=== PATIENT | female | born 1960 | race Caucasian/White ===

== ENCOUNTER 2016-10-13 15:53 | Emergency (ER) | payer BC ==
[~2016-10-13] VITALS: Ht 157.5 cm; Wt 72.6 kg
[~2016-10-13 15:53] MED LIST: OMEP1CAP19 PO; SIMV40TA3 PO
--- NOTE | 2016-10-13 16:17 | RAD ---
Indication: Anterior chest wall pain, fell off of a ladder today. Time of exam 1609 hours. Comparison is made with prior chest from 12/02/2006. The heart size is normal. There are surgical clips in the left axilla. The lungs are clear. No parenchymal contusion is seen. No effusion or pneumothorax is identified. The visualized bony structures appear intact. Impression: No acute abnormality is detected.
[2016-10-13 16:22] LABS: BASO # 0.1 x10^3/uL (0.0-0.2); BASO % 1 % (0-3); EOS % 1 % (0-3); HEMOGLOBIN 14.4 g/dL (12.0-15.5); LYMPH # 1.9 x10^3/uL (1.0-4.8); LYMPH % 34 % (24-48); MEAN CORPUSCULAR HEMOGLOBIN 32 pg (25-35); MEAN CORPUSCULAR HGB CONC 34 g/dL (31-37); MEAN CORPUSCULAR VOLUME 93 fL (79-100); MONO % 5 % (0-9); NEUT % 59 % (31-73); PLATELET COUNT 145 x10^3/uL (140-400); RED CELL DISTRIBUTION WIDTH 13.5 % (11.5-14.5); WHITE BLOOD COUNT 5.5 x10^3/uL (4.0-11.0)
[2016-10-13 16:32] LABS: PROTHROMBIN TIME PATIENT 12.4 SEC (11.7-14.0)
[2016-10-13 16:39] LABS: CALCIUM 9.5 mg/dL (8.5-10.1); GFR 57.1; POTASSIUM 3.8 mmol/L (3.5-5.1)
[2016-10-13 16:51] LABS: ALBUMIN/GLOBULIN RATIO 1.3 (1.0-1.7); TOTAL BILIRUBIN 0.6 mg/dL (0.2-1.0)
--- NOTE | 2016-10-13 16:57 | RAD ---
Clinical indications: Fell 20 feet from a ladder onto face. Head injury and neck pain. NONCONTRAST HEAD CT Technique: Noncontrast axial cross sectional scanning of the head was performed. PQRS Compliance Statement: One or more of the following individualized dose reduction techniques were utilized for this examination: 1. Automated exposure control 2. Adjustment of the mA and/or kV according to patient size 3. Use of iterative reconstruction technique Comparison: None available. Findings: No acute intracranial hemorrhage or midline shift or mass-effect or hydrocephalus or extra-axial fluid collection is seen. No focal hypodense area or sulci effacement is seen to indicate an acute infarct or edema radiographically. No skull fracture or pneumocephalus is seen. No opacification of the mastoid sinuses or the paranasal sinuses is seen. Impression: No acute intracranial abnormality is seen. Nasal septal deviation. NONCONTRAST CERVICAL SPINE CT Technique: Noncontrast helical CT scanning of the cervical spine was performed. Multiplanar 2-D reconstructions were generated. PQRS Compliance Statement: One or more of the following individualized dose reduction techniques were utilized for this examination: 1. Automated exposure control 2. Adjustment of the mA and/or kV according to patient size 3. Use of iterative reconstruction technique Findings: No acute fracture or discitis or osteolytic process or anterolisthesis is seen. There is moderate degenerative endplate spurring and disc space narrowing at C5-6 and C6-7. IMPRESSION: No acute fracture.
[2016-10-13] MEDS ORDERED: LIDOCAINE/EPI/TETRACAINE TOPICAL GEL 3 ML. TP ONE (17:45)
[2016-10-13] MEDS ORDERED: IOHEXOL 300 MG/ML 75 ML VIAL IV ONE (18:00)
[2016-10-13] MEDS ORDERED: CONTRAST GIVEN MC PRN (18:00)
[2016-10-13 18:10] LABS: BILIRUBIN,URINE NEGATIVE (NEG); GLUCOSE,URINE NEGATIVE (NEG); NITRITE,URINE NEGATIVE (NEG); PH,URINE 5.5; PROTEIN,URINE NEGATIVE (NEG-TRACE); UROBILINOGEN,URINE 0.2 mg/dL (0.2 mg/dL)
[2016-10-13 18:16] LABS: BACTERIA,URINE FEW /HPF (0-FEW); RBC,URINE 0 /HPF (0-2); SQUAMOUS EPITHELIAL CELL,UR FEW /LPF
[2016-10-13 18:20] LABS: BARBITURATES NEG (NEG); BENZODIAZEPINES NEG (NEG); CANNABINOIDS NEG (NEG); COCAINE NEG (NEG); METHADONE NEG (NEG); OPIATES NEG (NEG); PHENCYCLIDINE NEG (NEG)
--- NOTE | 2016-10-13 18:33 | PHYS DOC ---
Past Medical History Past Medical History: GERD Past Surgical History: Cholecystectomy, Hysterectomy, Tonsillectomy, Other Additional Past Surgical Histo: LUMPECTOMY L, Alcohol Use: None Drug Use: None Adult General Chief Complaint Chief Complaint: TRAUMA ACTIVATION HPI HPI Patient is a 56 year old female who was on a ladder 20 feet tall painting her house when the feet of the ladder slid away from the house and the patient fell down as the ladder went down, falling onto her face and abdomen on top of the ladder on a concrete surface. She denies loss of consciousness. At this time she complains of pain to her mouth and chin where she has lacerations. She denies head or neck pain. She complains of pain across the lower chest/upper abdomen, hurts to breathe, feels "tightness" in this area. She believes this area struck one of the rungs of the ladder. Also complains of pain in the left thumb/wrist area and the left elbow. Patient was ambulatory briefly after the fall. She was driven here by her . She does not take any blood thinners. Review of Systems Review of Systems Constitutional: Denies fever or chills [] Eyes: Denies change in visual acuity, redness, or eye pain [] HENT: Denies nasal congestion or sore throat [] Respiratory: Denies cough or shortness of breath [] Cardiovascular: Denies specific chest pain, see history of present illness GI: See history of present illness : Denies dysuria or hematuria [] Musculoskeletal: As in history of present illness Integument: Lacerations to face as in history of present illness Neurologic: Denies headache, focal weakness or sensory changes [] Current Medications Current Medications Current Medications Medications (Trade) Dose Ordered Sig/Viola Start Time Stop Time Status Last Admin Dose Admin Info (Do NOT chart on this entry -- for MONITORING) 1 each PRN DAILY PRN 10/13/16 18:00 10/13/16 20:58 DC Iohexol (Omnipaque 300 Mg/ml) 60 ml 1X ONCE 10/13/16 18:00 10/13/16 18:01 DC 10/13/16 18:13 60 ML Lidocaine/ Epinephrine (Let Topical) 6 ml 1X ONCE 10/13/16 17:45 10/13/16 17:46 DC 10/13/16 17:52 6 ML Lidocaine/ Epinephrine (Xylocaine 1%-Epi 1:100,000) 20 ml 1X ONCE 10/13/16 18:45 10/13/16 18:46 DC 10/13/16 18:35 20 ML Neomycin/ Polymyxin/ Bacitracin (Triple Antibiotic Ointment) 1 pkt 1X ONCE 10/13/16 19:45 10/13/16 19:52 DC 10/13/16 20:30 1 PKT Sodium Chloride 1,000 ml @ 1,000 mls/hr 1X ONCE 10/13/16 19:15 10/13/16 20:14 DC 10/13/16 19:12 1,000 MLS/HR Allergies Allergies Allergies Coded Allergies Type Severity Reaction Last Updated Verified No Known Drug Allergies 01/16/14 No Physical Exam Physical Exam Constitutional: Well developed, well nourished, no acute distress, non-toxic appearance. Alert, mentating normally. HENT: Normocephalic, no trauma to the forehead or scalp, nose normal, lacerations to the external lower lip and chin, fractures of lower central incisors right and left, no injury to the gums associated with these teeth, laceration in the vestibule between the lip and the gums, a piece of tooth is visible in this laceration. Eyes: PERRLA, EOMI, conjunctiva normal, no discharge. [] Neck: C-collar initially left in place Cardiovascular:Heart rate regular rhythm, no murmur [] Lungs & Thorax: Bilateral breath sounds clear to auscultation [] Abdomen: Bowel sounds normal, soft, nondistended, no masses, no pulsatile masses. Mildly tender to palpation across the upper abdomen, mostly over the lower ribs, no crepitance, no deformity. Skin: Warm, dry, no erythema, no rash. [] Back: No tenderness, no CVA tenderness. [] Extremities: Left upper extremity: Hand nontender without deformity. Wrist positive tenderness to snuffbox area. No deformity. Forearm unremarkable. Elbow has full range of motion with some discomfort with range of motion, no deformity. Humerus, shoulder unremarkable. Neurologic: Alert and oriented X 3, normal motor function, normal sensory function, no focal deficits noted. [] Current Patient Data Vital Signs Vital Signs Date Time Temp Pulse Resp B/P (MAP) Pulse Ox O2 Delivery O2 Flow Rate FiO2 10/13/16 20:15 71 17 123/63 (83) 98 Room Air 10/13/16 16:00 98.1 98.1 Lab Values Laboratory Tests Test 10/13/16 16:00 10/13/16 18:00 White Blood Count 5.5 x10^3/uL (4.0-11.0) Red Blood Count 4.50 x10^6/uL (3.50-5.40) Hemoglobin 14.4 g/dL (12.0-15.5) Hematocrit 42.0 % (36.0-47.0) Mean Corpuscular Volume 93 fL (79-100) Mean Corpuscular Hemoglobin 32 pg (25-35) Mean Corpuscular Hemoglobin Concent 34 g/dL (31-37) Red Cell Distribution Width 13.5 % (11.5-14.5) Platelet Count 145 x10^3/uL (140-400) Neutrophils (%) (Auto) 59 % (31-73) Lymphocytes (%) (Auto) 34 % (24-48) Monocytes (%) (Auto) 5 % (0-9) Eosinophils (%) (Auto) 1 % (0-3) Basophils (%) (Auto) 1 % (0-3) Neutrophils # (Auto) 3.3 x10^3uL (1.8-7.7) Lymphocytes # (Auto) 1.9 x10^3/uL (1.0-4.8) Monocytes # (Auto) 0.3 x10^3/uL (0.0-1.1) Eosinophils # (Auto) 0.0 x10^3/uL (0.0-0.7) Basophils # (Auto) 0.1 x10^3/uL (0.0-0.2) Prothrombin Time 12.4 SEC (11.7-14.0) Prothrombin Time INR 1.0 (0.8-1.1) PTT 22 SEC (24-38) L Sodium Level 142 mmol/L (136-145) Potassium Level 3.8 mmol/L (3.5-5.1) Chloride Level 106 mmol/L (98-107) Carbon Dioxide Level 27 mmol/L (21-32) Anion Gap 9 (6-14) Blood Urea Nitrogen 17 mg/dL (7-20) Creatinine 1.0 mg/dL (0.6-1.0) Estimated GFR (Cockcroft-Gault) 57.1 BUN/Creatinine Ratio 17 (6-20) Glucose Level 123 mg/dL (70-99) H Calcium Level 9.5 mg/dL (8.5-10.1) Total Bilirubin 0.6 mg/dL (0.2-1.0) Aspartate Amino Transferase (AST) 39 U/L (15-37) H Alanine Aminotransferase (ALT) 50 U/L (14-59) Alkaline Phosphatase 123 U/L (46-116) H Total Protein 7.0 g/dL (6.4-8.2) Albumin 4.0 g/dL (3.4-5.0) Albumin/Globulin Ratio 1.3 (1.0-1.7) Ethyl Alcohol Level < 10 mg/dL (0-10) Urine Collection Type Unknown Urine Color Yellow Urine Clarity Cloudy Urine pH 5.5 Urine Specific [place] 1.020 Urine Protein Negative mg/dL (NEG-TRACE) Urine Glucose (UA) Negative mg/dL (NEG) Urine Ketones (Stick) Trace mg/dL (NEG) Urine Blood Negative (NEG) Urine Nitrite Negative (NEG) Urine Bilirubin Negative (NEG) Urine Urobilinogen Dipstick 0.2 mg/dL (0.2 mg/dL) Urine Leukocyte Esterase Small (NEG) Urine RBC 0 /HPF (0-2) Urine WBC 5-10 /HPF (0-4) Urine Squamous Epithelial Cells Few /LPF Urine Bacteria Few /HPF (0-FEW) Urine Mucus Mod /LPF Urine Opiates Screen Neg (NEG) Urine Methadone Screen Neg (NEG) Urine Barbiturates Neg (NEG) Urine Phencyclidine Screen Neg (NEG) Urine Amphetamine/Methamphetamine Neg (NEG) Urine Benzodiazepines Screen Neg (NEG) Urine Cocaine Screen Neg (NEG) Urine Cannabinoids Screen Neg (NEG) Urine Ethyl Alcohol Neg (NEG) Laboratory Tests 10/13/16 16:00 Laboratory Tests 10/13/16 16:00 EKG EKG [] Radiology/Procedures Radiology/Procedures CT scan of the head and cervical spine read by the radiologist. No acute findings. Three-view x-ray of the left wrist read by me. On one view, possible scaphoid fracture noted. No other findings. Three-view x-ray of the left elbow read by me. Joint effusion present with larger anterior fat pad been normal. No definite fracture seen, possible radial head fracture. No posterior fat pad. CT scan of the abdomen and pelvis read by the radiologist. No acute findings. Procedure: Repair of facial lacerations by me LET was placed in the facial lacerations by nursing staff before the patient went to CT. After CT, they were partially anesthetized and procedure was done. The lacerations were cleaned with Betadine. Anesthetized with 1% lidocaine with epi. Irrigated with normal saline using a splash shield. Lacerations were explored. Small tooth fragments were removed. 3 cm laceration on the chin was repaired with 7 simple interrupted sutures of 6-0 Prolene. Left sided lower lip laceration measuring 1.5 cm was repaired with 5 simple interrupted sutures of 6- 0 Prolene. 0.5 cm laceration on the right side of the lower lip repaired with 1 simple interrupted suture of 6-0 Prolene. Good result on all lacerations. They were covered with triple antibiotic ointment. [] Course & Med Decision Making Course & Med Decision Making Pertinent Labs and Imaging studies reviewed. (See chart for details) This patient was a trauma team activation for fall over 20 feet. Initial evaluation: Cervical collar was left in place. Vital signs are stable. Tetanus is up-to-date. 1 view portable chest x-ray read by me. Heart size normal , lung ferreira are clear, no pneumothorax or pleural effusion. Dr. Lee, general surgery, called to check on the patient, was made aware of status. Patient was sent for head and C-spine CT which were cleared. Reevaluation after CT, vital signs remained stable. Left upper extremity x-rays were read by me. Discussed findings with the patient. Topical anesthetic was placed on the face lacerations, patient was sent for CT scan of the abdomen and pelvis due to continued pain and tenderness across the upper abdomen. I discussed the case with Dr. Steele, oral surgery. He stated that frequently, lacerations of the oral vestibule are not something that can be sutured, he stated frequently they leave it alone, the tissue is very thin and it ends up tearing when attempting to suture. He will follow the patient up in his office. Lacerations were repaired. Patient had a little vagal episode and was given a liter of IV fluids during the procedure. She felt a lot better after that. After lacerations were repaired, thumb spica splint and sling was placed on the left wrist/arm. Splint was checked by me and is well placed with distal neurovascular intact. Patient was ambulatory to the restroom assisted by nursing staff and felt well. She is going home with family members. 56-year-old female "rode a ladder" down from a height of over 20 feet to onto a concrete driveway surface. She landed more or less on her face and anterior chest and abdomen. Head, cervical spine no acute findings. Lacerations on the face repaired. Dental injury noted, she will need to follow-up. Intraoral laceration will be followed up by Dr. Steele, oral surgery. Referral to orthopedics. Left wrist was splinted for possible scaphoid fracture, left elbow was put in a sling for possible radial head fracture. See instructions for plan. [] Dragon Disclaimer Dragon Disclaimer This electronic medical record was generated, in whole or in part, using a voice recognition dictation system. Departure Departure Impression: Primary Impression: Laceration of face Additional Impressions: Fracture of incisor teeth Fracture of scaphoid of left wrist Left radial head fracture Chest wall trauma Disposition: 01 HOME, SELF-CARE Condition: STABLE Referrals: MAU CONRAD MD (PCP) PABLO WATSON MD, HAROLD D Jr DDS Patient Instructions: Facial Laceration, [id number], Head Injury, Adult, Easy -to-Read, Mouth Injury, Generic, [id number], Radial Head Fracture, Easy-to- Read, Scaphoid Fracture, Wrist, Tooth Fracture Additional Instructions: Call tomorrow to see Dr. Steele, oral surgery, on Tuesday. He will take another look at the laceration in your mouth. Also, in 5-6 days, he will remove the stitches in your face. Clean the sutured facial lacerations 2-3 times a day using half-strength peroxide and a Q-tip. Are air dry well and apply [id number] antibiotic ointment to keep them covered and moist. For the laceration in your mouth, very gently swish with Peridex after each time you eat, and at bedtime. You will need to have liquids only for a few days. For the tooth fractures, see your dentist. You need to see orthopedics, Dr. Watson, I gave you her phone number, for follow-up of the left wrist and elbow fractures. Leave the splint on and keep it dry. Ice and elevate the elbow and wrist for swelling. Wear the sling for the elbow when you are up and around, you may wear the sling at bedtime if more comfortable or you may leave it off. Ibuprofen 800 mg every 6-8 hours for pain. If needed, for more severe pain, also take [place] as directed. This is an opiate, do not take while driving, will cause sedation and constipation. It is safe to combine ibuprofen and hydrocodone /[place]. Scripts Chlorhexidine Gluconate (PERIDEX) 15 Ml Mouthwash 15 ML PO QID for mouth injuries, #946 ML Prov: PUSHPA DORAN MD 10/13/16 Hydrocodone/Apap 5-325 (NORCO 5-325 TABLET) 1 Each Tablet 1-2 TAB PO Q4-6HRS for wrist, elbow fracture, #20 TAB Prov: PUSHPA DORAN MD 10/13/16 Problem Qualifiers PUSHPA DORAN MD Oct 13, 2016 18:32
[2016-10-13] MEDS ORDERED: LIDOCAINE 1%/EPI 1:100,000 20 ML VIAL. INJ ONE (18:45)
[2016-10-13] MEDS ORDERED: IV NORMAL SALINE 1000ML BAG 1,000 ML IV ONE (19:15)
[2016-10-13] MEDS ORDERED: NEOMY/BACITR/POLYMYXIN OINT PACKET. TP ONE (19:45)
[2016-10-13] MEDS ORDERED: HYDR-971 PO (20:09)
[2016-10-13 20:15] VITALS: BP 123/63
[2016-10-13] MEDS ORDERED: CHLO15MO2 PO (20:22)
--- NOTE | 2016-10-13 21:59 | RAD ---
3 view left hand study History: Fell off of a ladder. Left hand pain. Findings: No acute fracture or dislocation or osteolytic process is seen. IMPRESSION: No acute fracture.
--- NOTE | 2016-10-13 21:59 | RAD ---
3 view left elbow study History: Fell from ladder 20 feet. Left elbow pain. Findings: A left elbow joint effusion is seen. This is consistent with an occult radial head fracture. Actual fracture line is not identified in this study. Left elbow joint is normally aligned otherwise. IMPRESSION: Occult left radial head fracture.
--- NOTE | 2016-10-14 09:11 | RAD ---
Indication: Fall from ladder and abdominal pain. Axial imaging through the abdomen and pelvis was performed after the administration of intravenous contrast. The lung bases are clear. No focal liver or splenic laceration is identified. The gallbladder is surgically absent. The pancreas is unremarkable. The adrenal glands are unremarkable. The kidneys are unremarkable. Aorta is nonaneurysmal. No free fluid in the abdomen or pelvis is identified. The small and large bowel loops are normal caliber. The bladder is unremarkable. The bony structures appear nonacute. Impression: No evidence of abdominal or pelvic visceral injury.
== END 2016-10-13 20:40 | disposition home or self-care (01) ==
LOC: ER 15:53
DX: S62.002A Unspecified fracture of navicular [scaphoid] bone of left wrist, initial encounter for closed fracture (principal); S52.122A Displaced fracture of head of left radius, initial encounter for closed fracture; S01.511A Laceration without foreign body of lip, initial encounter; S01.81XA Laceration without foreign body of other part of head, initial encounter; S01.512A Laceration without foreign body of oral cavity, initial encounter; R10.30 Lower abdominal pain, unspecified; R07.9 Chest pain, unspecified; K21.9 Gastro-esophageal reflux disease without esophagitis; Z90.49 Acquired absence of other specified parts of digestive tract; Z90.710 Acquired absence of both cervix and uterus; W11.XXXA Fall on and from ladder, initial encounter; Y93.E9 Activity, other interior property and clothing maintenance; Y92.098 Other place in other non-institutional residence as the place of occurrence of the external cause; Y99.8 Other external cause status
CPT/HCPCS: 12052; 29125; 36415; 70450; 71010; 72125; 73080; 73130; 74177; 80053; 80305; 80320; 81001; 85027; 85610; 85730; 86850; 86900; 86901; 96360; 99285; J3490; J7030; Q9967; 12013; G0480; G0481

== ENCOUNTER 2018-12-01 20:58 | Inpatient (IN) | payer BC ==
[~2018-12-01] VITALS: Ht 157.5 cm; Wt 69.6 kg
[~2018-12-01 20:58] MED LIST changes: +CHLO15MO2 PO; +HYDR-3164 PO; +LEVE500T56 PO; +LORA2ORA7 SL
[2018-12-01] MEDS ORDERED: MORPHINE SULFATE 4 MG/ML VIAL. IV/SQ PRN (21:15)
[2018-12-01] MEDS ORDERED: NITROGLYCERIN SUBLINGUAL 0.4 MG BOTTLE OF 25. SL PRN (21:15)
[2018-12-01 21:22] LABS: BASO % 0 % (0-3); EOS % 0 % (0-3); LYMPH # 0.8 x10^3/uL (1.0-4.8); LYMPH % 14 % (24-48); MEAN CORPUSCULAR HEMOGLOBIN 33 pg (25-35); MEAN CORPUSCULAR HGB CONC 36 g/dL (31-37); MEAN CORPUSCULAR VOLUME 92 fL (79-100); MONO # 0.3 x10^3/uL (0.0-1.1); MONO % 5 % (0-9); NEUT # 4.2 x10^3/uL (1.8-7.7); NEUT % 80 % (31-73); PLATELET COUNT 71 x10^3/uL (140-400); RED BLOOD COUNT 2.41 x10^6/uL (3.50-5.40); RED CELL DISTRIBUTION WIDTH 19.2 % (11.5-14.5); WHITE BLOOD COUNT 5.3 x10^3/uL (4.0-11.0)
[2018-12-01] MEDS ORDERED: ONDANSETRON PF 4 MG/2 ML VIAL. IV ONE (21:30)
[2018-12-01] MEDS ORDERED: FAMOTIDINE 20 MG/2 ML VIAL IVP ONE (21:30)
[2018-12-01 21:35] LABS: CALCIUM 8.2 mg/dL (8.5-10.1); CREATININE 0.5 mg/dL (0.6-1.0); GFR 126.3; POTASSIUM 4.1 mmol/L (3.5-5.1)
--- NOTE | 2018-12-01 21:36 | PHYS DOC ---
Past Medical History Past Medical History: Cancer, GERD, Other Additional Past Medical Histor: brain cancer that metastisized to bones. (ELIEL CONTE APRN) Past Surgical History: Cholecystectomy, Hysterectomy, Tonsillectomy, Other Additional Past Surgical Histo: LUMPECTOMY L, (ELIEL CONTE APRN) Alcohol Use: None Drug Use: None (ELIEL CONTE APRN) Adult General Chief Complaint Chief Complaint: CHEST PAIN HPI HPI Patient is a 58 year old female with a history of left breast cancer diagnosed in 2014, who recently was diagnosed with metastatic disease to the brain and started on oral dexamethasone and radiation who presents to the ED today complaining of 8 out of 10 substernal and epigastric chest pain that began this evening. Patient describes the pain as pressure to her chest. Denies anything specifically exacerbating or relieving her symptoms. She is also complaining of shortness of breath. Denies any fever coughing or congestion. She gets her treatment at [facility]. (ELIEL CONTE APRN) Review of Systems Review of Systems Constitutional: Denies fever or chills [] Eyes: Denies change in visual acuity, redness, or eye pain [] HENT: Denies nasal congestion or sore throat [] Respiratory: Reports shortness of breath. Denies cough Cardiovascular: Reports Chest pain. GI: Denies abdominal pain, nausea, vomiting, bloody stools or diarrhea [] : Denies dysuria or hematuria [] Musculoskeletal: Denies back pain or joint pain [] Integument: Denies rash or skin lesions [] Neurologic: Denies headache, focal weakness or sensory changes [] All other systems were reviewed and found to be within normal limits, except as documented in this note. (ELIEL CONTE APRN) Current Medications Current Medications Current Medications Medications (Trade) Dose Ordered Sig/Viola Start Time Stop Time Status Last Admin Dose Admin Ceftriaxone Sodium (Rocephin) 1 gm 1X ONCE 12/02/18 01:00 12/02/18 01:01 UNV Famotidine (Pepcid Vial) 20 mg 1X ONCE 12/01/18 21:30 12/01/18 21:31 DC 12/01/18 21:25 20 MG Info (CONTRAST GIVEN -- Rx MONITORING) 1 each PRN DAILY PRN 12/01/18 22:45 12/03/18 22:44 Iohexol (Omnipaque 350 Mg/ml) 90 ml 1X ONCE 12/01/18 23:00 12/01/18 23:01 DC 12/01/18 23:08 90 ML Morphine Sulfate (Morphine Sulfate) 2 mg PRN Q2HR PRN 12/02/18 01:00 12/03/18 00:59 Nitroglycerin (Nitrostat) 0.4 mg PRN Q5MIN PRN 12/01/18 21:15 12/02/18 21:14 12/01/18 21:24 0.4 MG Ondansetron HCl (Zofran) 4 mg PRN Q8HRS PRN 12/02/18 01:00 12/03/18 00:59 Sodium Chloride 1,000 ml @ 1,000 mls/hr 1X ONCE 12/01/18 21:45 12/01/18 22:44 DC 12/01/18 21:38 1,000 MLS/HR (UYEN MUSTAFA DO) Allergies Allergies Allergies Coded Allergies Type Severity Reaction Last Updated Verified No Known Drug Allergies 01/16/14 No (UYEN MUSTAFA DO) Physical Exam Physical Exam Constitutional: Well developed, well nourished, no acute distress, non-toxic appearance. [] HENT: Normocephalic, atraumatic, bilateral external ears normal, oropharynx moist, no oral exudates, nose normal. [] Eyes: PERRLA, EOMI, conjunctiva normal, no discharge. [] Neck: Normal range of motion, no tenderness, supple, no stridor. [] Cardiovascular:Heart rate regular rhythm, no murmur [] Lungs & Thorax: Diminished breath sounds to posterior lung bases Abdomen: Bowel sounds normal, soft, no tenderness, no masses, no pulsatile masses. [] Skin: Warm, dry, no erythema, no rash. [] Back: No tenderness, no CVA tenderness. [] Extremities: No tenderness, no cyanosis, no clubbing, ROM intact, no edema. [] Neurologic: Alert and oriented X 3, normal motor function, normal sensory function, no focal deficits noted. [] Psychologic: Affect normal, judgement normal, mood normal. [] (ELIEL CONTE APRN) Current Patient Data Vital Signs Vital Signs Date Time Temp Pulse Resp B/P (MAP) Pulse Ox O2 Delivery O2 Flow Rate FiO2 12/01/18 23:52 89 16 108/70 (83) 99 Room Air 12/01/18 21:00 97.7 97.7 (UYEN MUSTAFA DO) Lab Values Laboratory Tests Test 12/01/18 21:13 White Blood Count 5.3 x10^3/uL (4.0-11.0) Red Blood Count 2.41 x10^6/uL (3.50-5.40) L Hemoglobin 8.0 g/dL (12.0-15.5) L Hematocrit 22.0 % (36.0-47.0) L Mean Corpuscular Volume 92 fL (79-100) Mean Corpuscular Hemoglobin 33 pg (25-35) Mean Corpuscular Hemoglobin Concent 36 g/dL (31-37) Red Cell Distribution Width 19.2 % (11.5-14.5) H Platelet Count 71 x10^3/uL (140-400) L Neutrophils (%) (Auto) 80 % (31-73) H Lymphocytes (%) (Auto) 14 % (24-48) L Monocytes (%) (Auto) 5 % (0-9) Eosinophils (%) (Auto) 0 % (0-3) Basophils (%) (Auto) 0 % (0-3) Neutrophils # (Auto) 4.2 x10^3/uL (1.8-7.7) Lymphocytes # (Auto) 0.8 x10^3/uL (1.0-4.8) L Monocytes # (Auto) 0.3 x10^3/uL (0.0-1.1) Eosinophils # (Auto) 0.0 x10^3/uL (0.0-0.7) Basophils # (Auto) 0.0 x10^3/uL (0.0-0.2) Segmented Neutrophils % 71 % (35-66) H Band Neutrophils % 10 % (0-9) H Lymphocytes % 13 % (24-48) L Atypical Lymphocytes % (Manual) 1 % (0-0) H Monocytes % 3 % (0-10) Metamyelocytes % 1 % (0-0) H Myelocytes % 1 % (0-0) H Platelet Estimate Decreased (ADEQUATE) Giant Platelets Occ Polychromasia Slight Anisocytosis Slight Tear Drop Cells Occ D-Dimer (Coty) 7.27 ug/mlFEU (0.00-0.50) H Sodium Level 137 mmol/L (136-145) Potassium Level 4.1 mmol/L (3.5-5.1) Chloride Level 101 mmol/L (98-107) Carbon Dioxide Level 30 mmol/L (21-32) Anion Gap 6 (6-14) Blood Urea Nitrogen 19 mg/dL (7-20) Creatinine 0.5 mg/dL (0.6-1.0) L Estimated GFR (Cockcroft-Gault) 126.3 BUN/Creatinine Ratio 38 (6-20) H Glucose Level 152 mg/dL (70-99) H Calcium Level 8.2 mg/dL (8.5-10.1) L Magnesium Level 2.1 mg/dL (1.8-2.4) Total Bilirubin 1.2 mg/dL (0.2-1.0) H Aspartate Amino Transferase (AST) 64 U/L (15-37) H Alanine Aminotransferase (ALT) 122 U/L (14-59) H Alkaline Phosphatase 247 U/L (46-116) H Creatine Kinase 67 U/L (26-192) Creatine Kinase MB (Mass) 1.4 ng/mL (0.0-3.6) Creatine Kinase MB Relative Index % (0-4) Troponin I Quantitative < 0.017 ng/mL (0.000-0.055) VA-Prb-Y-Type Natriuretic Peptide 83 pg/mL (0-124) Total Protein 5.7 g/dL (6.4-8.2) L Albumin 2.8 g/dL (3.4-5.0) L Albumin/Globulin Ratio 1.0 (1.0-1.7) Lipase 229 U/L (73-393) Thyroid Stimulating Hormone (TSH) 0.558 uIU/mL (0.358-3.74) Laboratory Tests 12/01/18 21:13 Laboratory Tests 12/01/18 21:13 (UYEN MUSTAFA DO) EKG EKG [address] Mustafa sinus rhythm HR 98 no STEMI[] (ELIEL CONTE APRN) Radiology/Procedures Radiology/Procedures []PROCEDURE: CT ANGIOGRAPHY CHEST Exam: CTA chest INDICATION: Chest pain TECHNIQUE: Sequential axial images through the chest obtained following the administration of 90 mL of Omnipaque 350 IV contrast. Sagittal and coronal reformatted images were reconstructed from the axial data and reviewed. 3-D reformatted images were reconstructed from the axial data and reviewed. Comparisons: None FINDINGS: Visualized portions of the thyroid are unremarkable. No enlarged mediastinal lymph nodes. Heart size is normal. No pericardial effusion. Thoracic aorta has a normal course and caliber. Pulmonary artery is not enlarged. Evaluation for pulmonary embolus is mildly limited secondary to contrast bolus timing. No pulmonary embolus identified within the main, lobar or proximal segmental pulmonary arteries. Airways are patent. No consolidation or pneumothorax. Mosaic attenuation of the lung parenchyma bilaterally, likely related to air trapping. Peripheral linear bandlike opacities likely representing atelectasis. Patchy areas of opacity noted in the right upper lobe. No pleural effusion or thickening. Cirrhotic morphology of the liver with moderate amount of ascites in the visualized upper abdomen. There is a moderate-sized hiatal hernia. Sclerotic heterogenous appearance of the osseous structures diffusely. No acute fractures. IMPRESSION: 1. No pulmonary embolism identified within the main, lobar or proximal segmental pulmonary arteries. Evaluation distally is limited by contrast bolus timing. 2. Patchy areas of opacity in the right upper lobe favored to be infectious in etiology. 3. Cirrhotic morphology of the liver with moderate amount of ascites in the visualized upper abdomen. 4. Heterogenous sclerotic appearance of the osseous structures. Correlate for history of metastatic disease. Exposure: One or more of the following in the visualized dose reduction techniques were utilized for this examination: 1. Automated exposure control 2. Adjustment of the MA and/or KV according to patient size 3. Use of iterative of reconstructive technique Electronically signed by: Noelle Wolfe MD (12/01/2018 11:39 PM) [facility] DICTATED and SIGNED BY: NOELLE WOLFE MD DATE: 12/01/18 2339 (ELIEL CONTE APRN) Course & Med Decision Making Course & Med Decision Making Pertinent Labs and Imaging studies reviewed. (See chart for details) This is a 58-year-old female patient with history of breast cancer with metastasis to brain who presents to the ED today complaining of chest pressure/pain with shortness of breath that began a couple minutes prior to coming to the ED. EKG is negative, chest x-ray is negative, CBC within normal WBC, hemoglobin appears slightly low at 8.1 and hematocrit of 22.0, patient denies any rectal bleed. AST 64, ALT 122, ALT 247. Heart score on the template D-dimer was 7.27 CTA chest negative for PE , Patchy areas of opacity in the right upper lobe favored to be infectious in etiology. Cirrhotic morphology of the liver with moderate amount of ascites in the visualized upper abdomen. Heterogenous sclerotic appearance of the osseous structures. Correlate for history of metastatic disease. Patient was admitted under Dr.Termulo Dr. Mustafa to give report in AM. (ELIEL CONTE APRN) Dragon Disclaimer Dragon Disclaimer This electronic medical record was generated, in whole or in part, using a voice recognition dictation system. (ELIEL CONTE APRN) The HEART Score for CP Pts HEART Score for Chest Pain: HEART Score for Chest Pain Response (Comments) Value History Slighlty/Non-Suspicious 0 ECG Normal 0 Age >45 - < 65 1 Risk Factors 1 or 2 Risk Factors 1 Troponin < Normal Limit 0 Total 2 Risk Factors: Risk Factors: DM, Current or recent (<one month) smoker, HTN, HLP, family history of CAD, obesity. Risk Scores: Score 0 - 3: 2.5% MACE over next 6 weeks - Discharge Home Score 4 - 6: 20.3% MACE over next 6 weeks - Admit for Clinical Observation Score 7 - 10: 72.7% MACE over next 6 weeks - Early Invasive Strategies (ELIEL CONTE APRN) Departure Departure Impression: Primary Impression: Right upper lobe pneumonia Additional Impression: Chest pain Disposition: ADMITTED INPATIENT Condition: STABLE Referrals: MAU CONRAD MD (PCP) Attending Signature Attending Signature I have reviewed the [employer]'s note and plan of care. I was available for consultation as needed during the patient's visit in the emergency department. I agree with the clinical impression, plan, and disposition. (UYEN MUSTAFA DO) Problem Qualifiers Primary Impression: Right upper lobe pneumonia Pneumonia type: due to unspecified organism Qualified Codes: J18.1 - Lobar pneumonia, unspecified organism Additional Impression: Chest pain Chest pain type: unspecified Qualified Codes: R07.9 - Chest pain, unspecified ELIEL CONTE APRN Dec 01, 2018 21:36 UYEN MUSTAFA DO Dec 02, 2018 02:10
--- NOTE | 2018-12-01 21:38 | RAD ---
Exam: Chest one view INDICATION: Chest pain TECHNIQUE: Frontal view of the chest Comparisons: None FINDINGS: Right anterior chest wall port with catheter tip projecting over the right atrium. The cardiomediastinal silhouette and pulmonary vessels are within normal limits. The lung and pleural spaces are clear. IMPRESSION: No acute cardiopulmonary process. Port as described above. Electronically signed by: Noelle Knight MD (12/01/2018 9:35 PM) [facility]
[2018-12-01 21:41] LABS: ALBUMIN 2.8 g/dL (3.4-5.0); MAGNESIUM 2.1 mg/dL (1.8-2.4); TOTAL BILIRUBIN 1.2 mg/dL (0.2-1.0); TOTAL PROTEIN 5.7 g/dL (6.4-8.2)
[2018-12-01] MEDS ORDERED: IV NORMAL SALINE 1000ML BAG 1,000 ML IV ONE (21:45)
[2018-12-01 21:47] LABS: CREATINE KINASE 67 U/L (26-192)
[2018-12-01] MEDS ORDERED: CONTRAST GIVEN. MC PRN (22:45)
[2018-12-01] MEDS ORDERED: IOHEXOL 350 MG/ML 100 ML VIAL. IV ONE (23:00)
--- NOTE | 2018-12-01 23:42 | RAD ---
Exam: CTA chest INDICATION: Chest pain TECHNIQUE: Sequential axial images through the chest obtained following the administration of 90 mL of Omnipaque 350 IV contrast. Sagittal and coronal reformatted images were reconstructed from the axial data and reviewed. 3-D reformatted images were reconstructed from the axial data and reviewed. Comparisons: None FINDINGS: Visualized portions of the thyroid are unremarkable. No enlarged mediastinal lymph nodes. Heart size is normal. No pericardial effusion. Thoracic aorta has a normal course and caliber. Pulmonary artery is not enlarged. Evaluation for pulmonary embolus is mildly limited secondary to contrast bolus timing. No pulmonary embolus identified within the main, lobar or proximal segmental pulmonary arteries. Airways are patent. No consolidation or pneumothorax. Mosaic attenuation of the lung parenchyma bilaterally, likely related to air trapping. Peripheral linear bandlike opacities likely representing atelectasis. Patchy areas of opacity noted in the right upper lobe. No pleural effusion or thickening. Cirrhotic morphology of the liver with moderate amount of ascites in the visualized upper abdomen. There is a moderate-sized hiatal hernia. Sclerotic heterogenous appearance of the osseous structures diffusely. No acute fractures. IMPRESSION: 1. No pulmonary embolism identified within the main, lobar or proximal segmental pulmonary arteries. Evaluation distally is limited by contrast bolus timing. 2. Patchy areas of opacity in the right upper lobe favored to be infectious in etiology. 3. Cirrhotic morphology of the liver with moderate amount of ascites in the visualized upper abdomen. 4. Heterogenous sclerotic appearance of the osseous structures. Correlate for history of metastatic disease. Exposure: One or more of the following in the visualized dose reduction techniques were utilized for this examination: 1. Automated exposure control 2. Adjustment of the MA and/or KV according to patient size 3. Use of iterative of reconstructive technique Electronically signed by: Noelle Knight MD (12/01/2018 11:39 PM) [facility]
[2018-12-01 23:43] LABS: % ATYL 1 % (0-0); % BANDS 10 % (0-9); % LYMPHS 13 % (24-48); % METAS 1 % (0-0); % MONOS 3 % (0-10); % MYELOS 1 % (0-0); % SEGS 71 % (35-66); ANISOCYTOSIS SLIGHT; PLT ESTIMATE DECREASED (ADEQUATE); POLYCHROMASIA SLIGHT
[2018-12-01 23:44] LABS: TEAR DROP CELLS OCC
[2018-12-02] MEDS ORDERED: ONDANSETRON PF 4 MG/2 ML VIAL. IV PRN (01:00)
[2018-12-02] MEDS ORDERED: MORPHINE SULFATE 2 MG/ML VIAL. IV PRN (01:00)
[2018-12-02] MEDS ORDERED: cefTRIAXone IV Push 1 GM VIAL. IVP ONE ×2 (01:00→01:30)
[2018-12-02] MEDS ORDERED: IV NORMAL SALINE 1000ML BAG 1,000 ML IV ONE (01:30)
[2018-12-02 02:20] VITALS: BP 126/70
[2018-12-02] MEDS ORDERED: CAPE150T5 PO (03:21)
[2018-12-02] MEDS ORDERED: CAPE500T13 PO (03:21)
[2018-12-02] MEDS ORDERED: INSU100I13 SQ (03:21)
[2018-12-02] MEDS ORDERED: FURO20TA3 PO (03:21)
[2018-12-02] MEDS ORDERED: DEXA4TAB PO (03:21)
[2018-12-02] MEDS ORDERED: POTA20TA82 PO (03:21)
[2018-12-02] MEDS ORDERED: INSU100V SQ (03:21)
[2018-12-02] MEDS ORDERED: RANI300T PO (03:21)
[2018-12-02] MEDS ORDERED: ONDA4TAB12 PO (03:21)
[2018-12-02] MEDS ORDERED: LEVE500T6 PO (03:21)
[2018-12-02] MEDS ORDERED: LANS30CA PO (03:21)
[2018-12-02] MEDS ORDERED: ONDANSETRON ODT 4 MG TAB.RAPDIS. PO PRN (03:45)
[2018-12-02] MEDS ORDERED: IV DEXTROSE 5% 250 ML BAG. IV PRN ×2 (04:00→09:45)
[2018-12-02] MEDS ORDERED: DEXTROSE 50% 25 GM / 50ML DISP.SYRIN. IV PRN ×2 (04:00→09:45)
[2018-12-02 07:30] VITALS: BP 109/75
[2018-12-02] MEDS ORDERED: INSULIN LISPRO 300 UNITS/3 ML VIAL. SQ SCH (08:00)
--- NOTE | 2018-12-02 08:43 | PDOC2 ---
CONSULT Date of Consult Date of Consult DATE: 12/02/18 TIME: 08:39 Reason for Consult Reason for Consult: brain mets from breast cancer Identification/Chief Complaint Chief Complaint pain Source Source: Caregiver, Patient History of Present Illness Reason for Visit: 58 year old female with a history of HR(+) left breast cancer diagnosed in late 2013. She underwent neoadjuvant chemo, then XRT then surgery in early 2014. She was on Femara for 3+ yrs, when she was diagnosed with metastasis to bones and liver in February 2018. She then took Havalen and had a nice response until August 2018 when she was noticing "sinus headaches". It was then she was found to have recurrence in liver and brain then. She was started on decadron and Xeloda 1650mg PO BID for 14d of 21 day cycles. She finished whole brain radiation to the brain about a month ago - this was complicated by increased seizure activity, hyperglycemia, progressive weakness/deconditioning and sig wt gain. While she has been on steroids, she has had progressive edema in BLE and abdomen. Her primary oncologist Dr Amado prado left [facility] so she is starting afresh with Dr Ayers now. She is one week into her planned 2 weeks of Xeloda BID. I have asked her to hold the chemo until checking back in with Dr Ayers once out of the hospital. Last night, she just couldn't ever get comfortable with her breathing. Not really pain, just tightness in mid-chest and unable to feel like she had truly caught her breath. She has had shortness of breath, which is worse in the evening. It did get worse yesterday. She has had some chest tightness. She gets her care at [facility], but since she lives close to [facility] she was brought to Emergency Room by her . Continues to have some chest tightness, has been on diuretics for the past few weeks, which has actually helped the swelling some. She denies cough, runny nose, diarrhea. She has gastroesophageal reflux symptoms. She states she has had problems with low Hgb and plts while on this chemo. She uses a walker for balance and has home PT set up already. Next PET scan is scheduled for next week. She has no advanced directives, but wishes to be full code for now Past Medical History Cardiovascular: Hyperlipidemia Pulmonary: No pertinent hx CENTRAL NERVOUS SYSTEM: Other GI: GERD Heme/Onc: Cancer Hepatobiliary: No pertinent hx Psych: No pertinent hx Rheumatologic: No pertinent hx Infectious disease: No pertinent hx Renal/: No pertinent hx Endocrine: No pertinent hx Past Surgical History Past Surgical History: Breast Biopsy, Cholecystectomy, Tonsillectomy, Hysterectomy Family History Family History: Cancer Social History ALCOHOL: rare Drugs: None Current Problem List Problem List Problems Medical Problems: (1) Chest pain Status: Acute (2) Right upper lobe pneumonia Status: Acute Current Medications Current Medications Current Medications Nitroglycerin (Nitrostat) 0.4 mg PRN Q5MIN PRN SL CP RATING > 1/10 Last administered on 12/01/18at 21:24; Start 12/01/18 at 21:15; Stop 12/02/18 at 21:14 Morphine Sulfate (Morphine Sulfate) 4 mg PRN Q15MIN PRN IV/SQ PAIN GREATER THAN 3/10; Start 12/01/18 at 21:15; Stop 12/02/18 at 21:14 Ondansetron HCl (Zofran) 4 mg 1X ONCE IV Last administered on 12/01/18at 21:24; Start 12/01/18 at 21:30; Stop 12/01/18 at 21:31; Status DC Famotidine (Pepcid Vial) 20 mg 1X ONCE IVP Last administered on 12/01/18at 21:25; Start 12/01/18 at 21:30; Stop 12/01/18 at 21:31; Status DC Sodium Chloride 1,000 ml @ 1,000 mls/hr 1X ONCE IV Last administered on 12/01/18at 21:38; Start 12/01/18 at 21:45; Stop 12/01/18 at 22:44; Status DC Iohexol (Omnipaque 350 Mg/ml) 90 ml 1X ONCE IV Last administered on 12/01/18at 23:08; Start 12/01/18 at 23:00; Stop 12/01/18 at 23:01; Status DC Info (CONTRAST GIVEN -- Rx MONITORING) 1 each PRN DAILY PRN MC SEE COMMENTS; Start 12/01/18 at 22:45; Stop 12/03/18 at 22:44 Ceftriaxone Sodium (Rocephin) 1 gm 1X ONCE IVP ; Start 12/02/18 at 01:00; Stop 12/02/18 at 01:01; Status UNV Ondansetron HCl (Zofran) 4 mg PRN Q8HRS PRN IV NAUSEA/VOMITING 1ST CHOICE; Start 12/02/18 at 01:00; Stop 12/03/18 at 00:59 Morphine Sulfate (Morphine Sulfate) 2 mg PRN Q2HR PRN IV SEVERE PAIN 7-10; Start 12/02/18 at 01:00; Stop 12/03/18 at 00:59 Ceftriaxone Sodium (Rocephin) 1 gm 1X ONCE IVP Last administered on 12/02/18at 01:10; Start 12/02/18 at 01:30; Stop 12/02/18 at 01:31; Status DC Levofloxacin/ Dextrose 100 ml @ 100 mls/hr 1X ONCE IV Last administered on 12/02/18at 01:10; Start 12/02/18 at 01:30; Stop 12/02/18 at 02:29; Status DC Sodium Chloride 1,000 ml @ 75 mls/hr 1X ONCE IV Last administered on 12/02/18at 01:10; Start 12/02/18 at 01:30; Stop 12/02/18 at 14:49 Dexamethasone (Decadron) 0.5 mg TID PO ; Start 12/02/18 at 09:00 Furosemide (Lasix) 20 mg BID92 PO ; Start 12/02/18 at 09:00 Insulin Glargine (Lantus) 30 units DAILY SQ ; Start 12/02/18 at 09:00 Insulin Human Lispro (HumaLOG) 10 units TIDWMEALS SQ ; Start 12/02/18 at 08:00 Levetiracetam (Keppra) 750 mg BID PO ; Start 12/02/18 at 09:00 Ondansetron HCl (Zofran Odt) 8 mg PRN TID PRN PO NAUSEA/VOMITING 1ST CHOICE; Start 12/02/18 at 03:45 Pantoprazole Sodium (Protonix) 40 mg DAILYAC PO ; Start 12/02/18 at 07:30 Potassium Chloride (Klor-Con) 20 meq BID PO ; Start 12/02/18 at 09:00 Famotidine (Pepcid) 40 mg PRN DAILY PRN PO HEARTBURN / GAS; Start 12/02/18 at 09:00 Dextrose (Dextrose 50%-Water Syringe) 12.5 gm PRN Q15MIN PRN IV SEE COMMENTS; Start 12/02/18 at 04:00 Dextrose 250 ml PRN Q15MIN PRN IV SEE COMMENTS; Start 12/02/18 at 04:00 Active Scripts Active Lorazepam Intensol (Lorazepam) 2 Mg/1 Ml Oral.conc 2 Mg SL PRN Q6HRS PRN 15 Days Campbell 5-325 Tablet (Acetaminophen/Hydrocodone Bitart) 1 Each Tablet 1-2 Tab PO Q4-6HRS Reported Potassium Chloride 20 Meq Tablet.er 20 Meq PO BID Humalog (Insulin Lispro) 100 Unit/1 Ml Vial 10 Unit SQ TIDWMEALS Lantus Solostar (Insulin Glargine,Hum.rec.anlog) 100 Unit/1 Ml Insuln.pen 30 Unit SQ DAILY Capecitabine 500 Mg Tablet 1,500 Mg PO BID Capecitabine 150 Mg Tablet 150 Mg PO BID Ondansetron Odt (Ondansetron) 4 Mg Tab.rapdis 8 Mg PO PRN TID PRN Furosemide 20 Mg Tablet 20 Mg PO BID Ranitidine Hcl 300 Mg Tablet 300 Mg PO PRN DAILY PRN Lansoprazole 30 Mg Capsule.dr 30 Mg PO BID Dexamethasone 4 Mg Tablet 0.5 Mg PO TID Levetiracetam 500 Mg Tablet 1.5 Tab PO BID Allergies Allergies: Coded Allergies: No Known Drug Allergies (Unverified , 01/16/14) Physical Exam General: Alert, Oriented X3, Cooperative, No acute distress HEENT: Atraumatic, Other (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) Lungs: Clear to auscultation, Normal air movement Heart: Regular rate, No murmurs Abdomen: Normal bowel sounds, Other (distended) Extremities: Other (BLE pitting edema - wearing thigh high compressions) Skin: No rashes Neuro: Normal speech, Normal tone, Sensation intact Psych/Mental Status: Mental status NL, Mood NL Vitals VITALS Vital Signs Date Time Temp Pulse Resp B/P (MAP) Pulse Ox O2 Delivery O2 Flow Rate FiO2 12/02/18 05:10 Room Air 12/02/18 02:20 97.5 88 18 126/70 (88) 94 97.5 Labs Labs Laboratory Tests Test 12/01/18 21:13 12/02/18 03:30 12/02/18 07:56 White Blood Count 5.3 x10^3/uL (4.0-11.0) Red Blood Count 2.41 x10^6/uL (3.50-5.40) Hemoglobin 8.0 g/dL (12.0-15.5) Hematocrit 22.0 % (36.0-47.0) Mean Corpuscular Volume 92 fL (79-100) Mean Corpuscular Hemoglobin 33 pg (25-35) Mean Corpuscular Hemoglobin Concent 36 g/dL (31-37) Red Cell Distribution Width 19.2 % (11.5-14.5) Platelet Count 71 x10^3/uL (140-400) Neutrophils (%) (Auto) 80 % (31-73) Lymphocytes (%) (Auto) 14 % (24-48) Monocytes (%) (Auto) 5 % (0-9) Eosinophils (%) (Auto) 0 % (0-3) Basophils (%) (Auto) 0 % (0-3) Neutrophils # (Auto) 4.2 x10^3/uL (1.8-7.7) Lymphocytes # (Auto) 0.8 x10^3/uL (1.0-4.8) Monocytes # (Auto) 0.3 x10^3/uL (0.0-1.1) Eosinophils # (Auto) 0.0 x10^3/uL (0.0-0.7) Basophils # (Auto) 0.0 x10^3/uL (0.0-0.2) Segmented Neutrophils % 71 % (35-66) Band Neutrophils % 10 % (0-9) Lymphocytes % 13 % (24-48) Atypical Lymphocytes % (Manual) 1 % (0-0) Monocytes % 3 % (0-10) Metamyelocytes % 1 % (0-0) Myelocytes % 1 % (0-0) Platelet Estimate Decreased (ADEQUATE) Giant Platelets Occ Polychromasia Slight Anisocytosis Slight Tear Drop Cells Occ D-Dimer (Coty) 7.27 ug/mlFEU (0.00-0.50) Sodium Level 137 mmol/L (136-145) Potassium Level 4.1 mmol/L (3.5-5.1) Chloride Level 101 mmol/L (98-107) Carbon Dioxide Level 30 mmol/L (21-32) Anion Gap 6 (6-14) Blood Urea Nitrogen 19 mg/dL (7-20) Creatinine 0.5 mg/dL (0.6-1.0) Estimated GFR (Cockcroft-Gault) 126.3 BUN/Creatinine Ratio 38 (6-20) Glucose Level 152 mg/dL (70-99) Calcium Level 8.2 mg/dL (8.5-10.1) Magnesium Level 2.1 mg/dL (1.8-2.4) Total Bilirubin 1.2 mg/dL (0.2-1.0) Aspartate Amino Transf (AST/SGOT) 64 U/L (15-37) Alanine Aminotransferase (ALT/SGPT) 122 U/L (14-59) Alkaline Phosphatase 247 U/L (46-116) Creatine Kinase 67 U/L (26-192) Creatine Kinase MB (Mass) 1.4 ng/mL (0.0-3.6) Creatine Kinase MB Relative Index % (0-4) Troponin I Quantitative < 0.017 ng/mL (0.000-0.055) < 0.017 ng/mL (0.000-0.055) OK-Mgd-U-Type Natriuretic Peptide 83 pg/mL (0-124) Total Protein 5.7 g/dL (6.4-8.2) Albumin 2.8 g/dL (3.4-5.0) Albumin/Globulin Ratio 1.0 (1.0-1.7) Lipase 229 U/L (73-393) Thyroid Stimulating Hormone (TSH) 0.558 uIU/mL (0.358-3.74) Lactic Acid Level 1.4 mmol/L (0.4-2.0) Glucose (Fingerstick) 79 mg/dL (70-99) Images Images CT angio 12/01/18: 1. No pulmonary embolism identified within the main, lobar or proximal segmental pulmonary arteries. Evaluation distally is limited by contrast bolus timing. 2. Patchy areas of opacity in the right upper lobe favored to be infectious in etiology. 3. Cirrhotic morphology of the liver with moderate amount of ascites in the visualized upper abdomen. 4. Heterogenous sclerotic appearance of the osseous structures. Correlate for history of metastatic disease. Assessment/Plan Assessment/Plan 58 yo F c metastatic breast cancer to brain, presenting with substernal chest pain 12/01/18. She has been on high doses of decadron for her newly diagnosed brain mets, with underlying acid reflux. Without having other labs to compare, anemia could cause discomfort like such, so would want to trend Hgb values over today to make sure it is not dropping precipitously (GI ulcer from steroids?). Agree with US BLE to rule out DVT. Not convinced this represents pneumonia, but would keep her on antibiotic regimen for now. Hope would be to get her out of the hospital by tomorrow, as she looks good/comfortable today, and she has good follow-up already scheduled at [facility]. Full code. Hold chemo until outpt f/u. Thanks for consult, Janie, cell [phone] WILMAR NOBLES MD Dec 02, 2018 08:43
[2018-12-02] MEDS ORDERED: AZITHROMYCIN 250 MG TABLET. PO ONE (08:45)
--- NOTE | 2018-12-02 08:52 | PDOC ---
Provider Note Provider Note [id number] dyspnea pneumonia abx, BD, le venous doppler ALEKSANDRA ARTIS MD Dec 02, 2018 08:52
[2018-12-02] MEDS ORDERED: DEXAMETHASONE 1 MG TABLET PO SCH (09:00)
[2018-12-02] MEDS ORDERED: INSULIN GLARGINE 300 UNITS/3 ML INSULN.PEN. SQ SCH (09:00)
[2018-12-02] MEDS ORDERED: FUROSEMIDE 20 MG TABLET PO SCH (09:00)
[2018-12-02] MEDS ORDERED: FAMOTIDINE 20 MG TABLET. PO PRN (09:00)
--- NOTE | 2018-12-02 09:08 | CONS ---
DATE OF CONSULTATION: 12/02/2018 I was asked to see this 58-year-old lady for shortness of breath, pneumonia. HISTORY OF PRESENT ILLNESS: She is a lifelong nonsmoker. She does not have any pulmonary disease. She was diagnosed with breast cancer in 2014. She was diagnosed with metastasis to brain and liver in February, has had different chemotherapies. She is now on Xeloda daily and Decadron. She finished radiation to the brain about a month ago. She has had increased lower extremity edema for the past couple of weeks. She has gained about 20 pounds over the past week. She has had shortness of breath, which is worse in the evening. It did get worse yesterday. She has had some chest tightness. She gets her care [facility], but since she lives close to [facility] she was brought to Emergency Room by her . Her shortness of breath has improved. She denies chest pain. Continues to have some chest tightness, has been on diuretics for the past few weeks. She denies cough, runny nose, diarrhea. She has gastroesophageal reflux symptoms. She uses a walker for balance. PAST MEDICAL HISTORY: Metastatic breast cancer as mentioned as above. She also has mets to bones, status post cholecystectomy, hysterectomy, history of seizure due to brain mets in September. She is on anti-seizure medication. ALLERGIES: No known drug allergies. MEDICATIONS: Currently, she is on Pepcid, Keppra, insulin, Lasix, Decadron, Protonix. She received Levaquin and Rocephin in the Emergency Room. SOCIAL HISTORY: She is a lifelong nonsmoker. FAMILY HISTORY: There is no history of lung disease. REVIEW OF SYSTEMS: She does snore and feels tired during the day. As mentioned as above, other systems otherwise negative. PHYSICAL EXAMINATION: GENERAL: This is an overweight lady. VITAL SIGNS: Her O2 saturation is 94%, respiratory rate 18, heart rate 88, blood pressure 126/70, and temperature 97.5. HEENT: Normocephalic, atraumatic. Pupils equal, round, reactive to light. There is shallow oropharynx. Nose is clear. NECK: There is no JVD, lymphadenopathy or thyromegaly. CARDIOVASCULAR: Regular rate and rhythm. Distant heart sounds. CHEST: Inspection is normal. LUNGS: There are diminished breath sounds. ABDOMEN: Soft. Bowel sounds are good. There is no mass. EXTREMITIES: There is 2+ edema. LYMPHATICS: There is no lymphadenopathy. NEUROLOGIC: Alert and oriented. SKIN: Warm. LABORATORY DATA: I reviewed the following lab data: CT angiogram of the chest did not show pulmonary embolism in main lobar and paroxysmal segmental pulmonary arteries. Evaluation was limited by contrast bolus timing and patchy area of infiltrate in right upper lobe area, cirrhotic morphology of the liver. Heterogeneous sclerotic appearance of the osseous structure. Her D-dimer was 7.27. Sodium 137, potassium 4.1, chloride 101, CO2 of 30, glucose 152, BUN 19, creatinine 0.5. Lactic acid 1.4. Troponin less than 0.01. Total bilirubin 1.2, AST 64, ALT 122, alkaline phosphatase 247. WBC 5.3, hemoglobin 8, platelets 71. IMPRESSION: 1. Dyspnea, multifactorial in etiology including pneumonia, volume overload versus others. 2. Abnormal chest x-ray. 3. Pneumonia. 4. Metastatic breast cancer with mets to bone, brain and liver. 5. Anemia. 6. Thrombocytopenia. 7. Snoring, probable obstructive sleep apnea-hypopnea syndrome. PLAN AND RECOMMENDATIONS: 1. Titrate FiO2 to keep O2 saturation 92%. 2. Start bronchodilator. 3. Start Rocephin and azithromycin. 4. We will do lower extremity venous Doppler to rule out DVT. 5. Echo and stress test that have been normal per patient. 6. I suspect her volume overload is secondary to liver mets and probably cirrhosis. 7. The findings and recommendations were discussed with the patient and her . They understood and agreed to proceed with the plan. I have answered all of their questions. Thank you very much for allowing me to participate in care of this very nice lady. ALEKSANDRA ARTIS M.D. : JOSEPH/ramírez JOB#: [id number] / [id number]
[2018-12-02] MEDS: POTASSIUM CHLORIDE 20 MEQ TABLET.ER. PO SCH ×2 (09:20→21:22)
[2018-12-02] MEDS: PANTOPRAZOLE 40 MG TABLET.DR. PO SCH (09:23)
[2018-12-02] MEDS: levETIRAcetam 250 MG TABLET PO SCH ×2 (09:23→21:22)
[2018-12-02] MEDS: DEXAMETHASONE 1 MG TABLET PO SCH ×2 (10:08→15:24)
[2018-12-02] MEDS: FUROSEMIDE 20 MG TABLET PO SCH (10:08)
[2018-12-02] MEDS: INSULIN LISPRO 300 UNITS/3 ML VIAL. SQ SCH ×5 (10:12→17:51)
[2018-12-02] MEDS: INSULIN GLARGINE 300 UNITS/3 ML INSULN.PEN. SQ SCH (10:13)
[2018-12-02 11:00] VITALS: BP 108/72
[2018-12-02 11:23] LABS: BASO % 0 % (0-3); EOS % 0 % (0-3); HEMOGLOBIN 7.3 g/dL (12.0-15.5); LYMPH # 0.7 x10^3/uL (1.0-4.8); LYMPH % 19 % (24-48); MEAN CORPUSCULAR HEMOGLOBIN 33 pg (25-35); MEAN CORPUSCULAR HGB CONC 36 g/dL (31-37); MEAN CORPUSCULAR VOLUME 92 fL (79-100); MONO # 0.2 x10^3/uL (0.0-1.1); MONO % 5 % (0-9); NEUT # 2.9 x10^3/uL (1.8-7.7); NEUT % 76 % (31-73); PLATELET COUNT 60 x10^3/uL (140-400); RED BLOOD COUNT 2.19 x10^6/uL (3.50-5.40); RED CELL DISTRIBUTION WIDTH 19.7 % (11.5-14.5); WHITE BLOOD COUNT 3.8 x10^3/uL (4.0-11.0)
[2018-12-02 11:25] LABS: HEMATOCRIT 20.1 % (36.0-47.0)
--- NOTE | 2018-12-02 11:34 | RAD ---
CLINICAL HISTORY: Bilateral lower extremity edema, shortness of breath COMPARISON: None TECHNIQUE: Ultrasound evaluation of the bilateral lower extremities was performed from the groin to the upper calf with bartlett scale, spectral and color doppler evaluation. FINDINGS: The bilateral common femoral vein, and femoral vein, including the saphenous-femoral junction are normal in appearance. Color and spectral Doppler evaluation demonstrates normal spontaneous flow, augmentation and phasicity. The bilateral popliteal vein and visualized calf veins also demonstrate normal compressibility and flow. IMPRESSION: No evidence for DVT in the bilateral lower extremities. Electronically signed by: Zain Peña MD (12/02/2018 11:31 AM) [facility]
[2018-12-02] MEDS: IPRATROPIUM BROMIDE 0.5 MG/2.5 ML NEBU. NEB SCH ×3 (11:53→20:10)
--- NOTE | 2018-12-02 12:54 | EKG ---
[facility] [address] [place] [id number] Test Date: 2018-12-01 Test Time: 21:06:37 Pat Name: ROWENA FERGUSON Department: Room: Gender: F Data Typist: : 1960 Requested By: ELIEL CONTE Order Number: [id number] Reading MD: Measurements Intervals [place] Rate: 98 P: 22 ID: [id number] QRS: -24 QRSD: 86 T: 28 QT: 332 QTc: 425 Interpretive Statements SINUS RHYTHM LEFTWARD AXIS NON SPECIFIC T ABNORMALITY BORDERLINE ECG No previous ECG available for comparison
--- NOTE | 2018-12-02 13:55 | PDOC1 ---
History and Physical Date of Admission Date of Admission DATE: 12/02/18 TIME: 13:52 History of Present Illness History of Present Illness t Ms. Martinez, is a 58 year old female usually seen at [facility] admit here is distress with resp failure, acute dysnea with chest pain. pressre and pain with dyspnea. She has left breast cancer, diagnosed in 2014, mets to brain and started on oral dexamethasone and radiation. . Patient describes the pain as pressure to her chest. Denies anything specifically exacerbating or relieving her symptoms Past Medical History Cardiovascular: Hyperlipidemia Pulmonary: No pertinent hx CENTRAL NERVOUS SYSTEM: Other GI: GERD Heme/Onc: Cancer Hepatobiliary: No pertinent hx Psych: No pertinent hx Rheumatologic: No pertinent hx Infectious disease: No pertinent hx Renal/: No pertinent hx Endocrine: No pertinent hx Past Surgical History Past Surgical History: Breast Biopsy, Cholecystectomy, Tonsillectomy, Hysterectomy Family History Family History: Cancer Social History Smoke: No ALCOHOL: rare Drugs: None Current Problem List Problem List Problems Medical Problems: (1) Chest pain Status: Acute (2) Right upper lobe pneumonia Status: Acute Current Medications Current Medications Current Medications Nitroglycerin (Nitrostat) 0.4 mg PRN Q5MIN PRN SL CP RATING > 1/10 Last administered on 12/01/18at 21:24; Start 12/01/18 at 21:15; Stop 12/02/18 at 21:14 Morphine Sulfate (Morphine Sulfate) 4 mg PRN Q15MIN PRN IV/SQ PAIN GREATER THAN 3/10; Start 12/01/18 at 21:15; Stop 12/02/18 at 21:14 Ondansetron HCl (Zofran) 4 mg 1X ONCE IV Last administered on 12/01/18at 21:24; Start 12/01/18 at 21:30; Stop 12/01/18 at 21:31; Status DC Famotidine (Pepcid Vial) 20 mg 1X ONCE IVP Last administered on 12/01/18at 21:25; Start 12/01/18 at 21:30; Stop 12/01/18 at 21:31; Status DC Sodium Chloride 1,000 ml @ 1,000 mls/hr 1X ONCE IV Last administered on 12/01/18at 21:38; Start 12/01/18 at 21:45; Stop 12/01/18 at 22:44; Status DC Iohexol (Omnipaque 350 Mg/ml) 90 ml 1X ONCE IV Last administered on 12/01/18at 23:08; Start 12/01/18 at 23:00; Stop 12/01/18 at 23:01; Status DC Info (CONTRAST GIVEN -- Rx MONITORING) 1 each PRN DAILY PRN MC SEE COMMENTS; Start 12/01/18 at 22:45; Stop 12/03/18 at 22:44 Ceftriaxone Sodium (Rocephin) 1 gm 1X ONCE IVP ; Start 12/02/18 at 01:00; Stop 12/02/18 at 01:01; Status UNV Ondansetron HCl (Zofran) 4 mg PRN Q8HRS PRN IV NAUSEA/VOMITING 1ST CHOICE; Start 12/02/18 at 01:00; Stop 12/03/18 at 00:59 Morphine Sulfate (Morphine Sulfate) 2 mg PRN Q2HR PRN IV SEVERE PAIN 7-10; Start 12/02/18 at 01:00; Stop 12/03/18 at 00:59 Ceftriaxone Sodium (Rocephin) 1 gm 1X ONCE IVP Last administered on 12/02/18at 01:10; Start 12/02/18 at 01:30; Stop 12/02/18 at 01:31; Status DC Levofloxacin/ Dextrose 100 ml @ 100 mls/hr 1X ONCE IV Last administered on 12/02/18at 01:10; Start 12/02/18 at 01:30; Stop 12/02/18 at 02:29; Status DC Sodium Chloride 1,000 ml @ 75 mls/hr 1X ONCE IV Last administered on 12/02/18at 01:10; Start 12/02/18 at 01:30; Stop 12/02/18 at 14:49 Dexamethasone (Decadron) 0.5 mg TID PO ; Start 12/02/18 at 09:00; Stop 12/02/18 at 09:47; Status DC Furosemide (Lasix) 20 mg BID92 PO ; Start 12/02/18 at 09:00; Stop 12/02/18 at 09:47; Status DC Insulin Glargine (Lantus) 30 units DAILY SQ ; Start 12/02/18 at 09:00; Stop 12/02/18 at 09:47; Status DC Insulin Human Lispro (HumaLOG) 10 units TIDWMEALS SQ ; Start 12/02/18 at 08:00; Stop 12/02/18 at 09:47; Status DC Levetiracetam (Keppra) 750 mg BID PO Last administered on 12/02/18at 10:07; Start 12/02/18 at 09:00 Ondansetron HCl (Zofran Odt) 8 mg PRN TID PRN PO NAUSEA/VOMITING 1ST CHOICE; Start 12/02/18 at 03:45 Pantoprazole Sodium (Protonix) 40 mg DAILYAC PO Last administered on 12/02/18at 10:07; Start 12/02/18 at 07:30 Potassium Chloride (Klor-Con) 20 meq BID PO Last administered on 12/02/18at 10:07; Start 12/02/18 at 09:00 Famotidine (Pepcid) 40 mg PRN DAILY PRN PO HEARTBURN / GAS; Start 12/02/18 at 09:00 Dextrose (Dextrose 50%-Water Syringe) 12.5 gm PRN Q15MIN PRN IV SEE COMMENTS; Start 12/02/18 at 04:00; Stop 12/02/18 at 09:55; Status DC Dextrose 250 ml PRN Q15MIN PRN IV SEE COMMENTS; Start 12/02/18 at 04:00 Ceftriaxone Sodium (Rocephin) 1 gm HS IVP ; Start 12/02/18 at 21:00 Azithromycin (Zithromax) 500 mg 1X ONCE PO Last administered on 12/02/18at 10:07; Start 12/02/18 at 08:45; Stop 12/02/18 at 08:46; Status DC Azithromycin (Zithromax) 250 mg DAILY PO ; Start 12/03/18 at 09:00 Ipratropium [place] (Atrovent) 0.5 mg RTQID NEB Last administered on 12/02/18at 11:53; Start 12/02/18 at 12:00 Dexamethasone (Decadron) 2 mg BID92 PO Last administered on 12/02/18at 10:13; Start 12/02/18 at 09:45 Furosemide (Lasix) 40 mg DAILY PO Last administered on 12/02/18at 10:13; Start 12/02/18 at 09:45 Insulin Glargine (Lantus) 15 units DAILY SQ Last administered on 8/17/19at 10:13; Start 12/02/18 at 09:45 Insulin Human Lispro (HumaLOG) 5 units TIDWMEALS SQ Last administered on at 12:55; Start 12/02/18 at 09:45 Insulin Human Lispro (HumaLOG) 0-5 UNITS TIDWMEALS SQ ; Start 12/02/18 at 12:00 Dextrose (Dextrose 50%-Water Syringe) 12.5 gm PRN Q15MIN PRN IV SEE COMMENTS; Start 12/02/18 at 09:45 Dextrose 250 ml PRN Q15MIN PRN IV SEE COMMENTS; Start 12/02/18 at 09:45 Active Scripts Active Lorazepam Intensol (Lorazepam) 2 Mg/1 Ml Oral.conc 2 Mg SL PRN Q6HRS PRN 15 Days [place] 5-325 Tablet (Acetaminophen/Hydrocodone Bitart) 1 Each Tablet 1-2 Tab PO Q4-6HRS Reported Potassium Chloride 20 Meq Tablet.er 20 Meq PO BID Humalog (Insulin Lispro) 100 Unit/1 Ml Vial 10 Unit SQ TIDWMEALS Lantus Solostar (Insulin Glargine,Hum.rec.anlog) 100 Unit/1 Ml Insuln.pen 30 Unit SQ DAILY Capecitabine 500 Mg Tablet 1,500 Mg PO BID Capecitabine 150 Mg Tablet 150 Mg PO BID Ondansetron Odt (Ondansetron) 4 Mg Tab.rapdis 8 Mg PO PRN TID PRN Furosemide 20 Mg Tablet 20 Mg PO BID Ranitidine Hcl 300 Mg Tablet 300 Mg PO PRN DAILY PRN Lansoprazole 30 Mg Capsule.dr 30 Mg PO BID Dexamethasone 4 Mg Tablet 0.5 Mg PO TID Levetiracetam 500 Mg Tablet 1.5 Tab PO BID Allergies Allergies: Coded Allergies: No Known Drug Allergies (Unverified , 01/16/14) ROS General: YES: Chills, Fatigue, Malaise PSYCHOLOGICAL ROS: YES: Sleep disturbances; No: Anxiety, Behavioral Disorder, Concentration difficultie, Decreased libido, Depression, Disorientation, Hallucinations, Hostility, Irritablity, Memory difficulties, Mood Swings, Obsessive thoughts, Other Eyes: No Blurry vision, No Decreased vision, No Double vision, No Dry eyes, No Excessive tearing, No Eye Pain, No Itchy Eyes, No Loss of vision, No Photophobia, No Scotomata, No Uses contacts, No Uses glasses, No Other HEENT: No: Heacaches, Visual Changes, Hearing change, Nasal congestion, Nasal discharge, Oral lesions, Sinus pain, Sore Throat, Epistaxis, Sneezing, Snoring, Tinnitus, Vertigo, Vocal changes, Other Respiratory: YES: Shortness of breath, SOB with excertion, Tachypnea; No: Cough, Hemoptysis, Orthopnea, Pleuritic Pain, Sputum Changes, Stridor, Wheezing, Other Cardiovascular: yes Chest Pain Gastrointestinal: No Nausea, No Vomiting, No Abdominal Pain, No Diarrhea, No Constipation, No Melena, No Hematochezia, No Other Genitourinary: No Dysuria, No Frequency, No Incontinence, No Hematuria, No Retention, No Discharge, No Urgency, No Pain, No Flank Pain, No Other, No , No , No , No , No , No , No Musculoskeletal: Yes Joint Pain, Yes Muscular Weakness; No Gait Disturbance, No Joint Stiffness, No Joint Swelling, No Muscle Pain, No Pain In:, No Swelling In:, No Other Neurological: No Behavorial Changes, No Bowel/Bladder ControlChng, No Confusion, No Dizziness, No Gait Disturbance, No Headaches, No Impaired Coord/balance, No Memory Loss, No Numbness/Tingling, No Seizures, No Speech Problems, No Tremors, No Visual Changes, No Weakness, No Other Skin: No Dry Skin, No Eczema, No Hair Changes, No Lumps, No Mole Changes, No Mottling, No Nail Changes, No Pruritus, No Rash, No Skin Lesion Changes, No Other, No Acne Physical Exam General: Alert, Oriented X3, Cooperative, mild distress HEENT: Atraumatic, PERRLA Lungs: Clear to auscultation Heart: S1S2, RRR Extremities: No clubbing, No edema Skin: No rashes, No breakdown, No significant lesion Neuro: Normal gait, Sensation intact, Cranial nerves 3-12 NL Psych/Mental Status: Mood NL Vitals Vitals Vital Signs Date Time Temp Pulse Resp B/P (MAP) Pulse Ox O2 Delivery O2 Flow Rate FiO2 12/02/18 11:56 96 Room Air 12/02/18 11:00 98.0 102 18 108/72 (84) 98.0 Labs Labs Laboratory Tests Test 12/01/18 21:13 12/02/18 03:30 12/02/18 07:56 12/02/18 10:55 White Blood Count 5.3 x10^3/uL (4.0-11.0) 3.8 x10^3/uL (4.0-11.0) Red Blood Count 2.41 x10^6/uL (3.50-5.40) 2.19 x10^6/uL (3.50-5.40) Hemoglobin 8.0 g/dL (12.0-15.5) 7.3 g/dL (12.0-15.5) Hematocrit 22.0 % (36.0-47.0) 20.1 % (36.0-47.0) Mean Corpuscular Volume 92 fL (79-100) 92 fL (79-100) Mean Corpuscular Hemoglobin 33 pg (25-35) 33 pg (25-35) Mean Corpuscular Hemoglobin Concent 36 g/dL (31-37) 36 g/dL (31-37) Red Cell Distribution Width 19.2 % (11.5-14.5) 19.7 % (11.5-14.5) Platelet Count 71 x10^3/uL (140-400) 60 x10^3/uL (140-400) Neutrophils (%) (Auto) 80 % (31-73) 76 % (31-73) Lymphocytes (%) (Auto) 14 % (24-48) 19 % (24-48) Monocytes (%) (Auto) 5 % (0-9) 5 % (0-9) Eosinophils (%) (Auto) 0 % (0-3) 0 % (0-3) Basophils (%) (Auto) 0 % (0-3) 0 % (0-3) Neutrophils # (Auto) 4.2 x10^3/uL (1.8-7.7) 2.9 x10^3/uL (1.8-7.7) Lymphocytes # (Auto) 0.8 x10^3/uL (1.0-4.8) 0.7 x10^3/uL (1.0-4.8) Monocytes # (Auto) 0.3 x10^3/uL (0.0-1.1) 0.2 x10^3/uL (0.0-1.1) Eosinophils # (Auto) 0.0 x10^3/uL (0.0-0.7) 0.0 x10^3/uL (0.0-0.7) Basophils # (Auto) 0.0 x10^3/uL (0.0-0.2) 0.0 x10^3/uL (0.0-0.2) Segmented Neutrophils % 71 % (35-66) Band Neutrophils % 10 % (0-9) Lymphocytes % 13 % (24-48) Atypical Lymphocytes % (Manual) 1 % (0-0) Monocytes % 3 % (0-10) Metamyelocytes % 1 % (0-0) Myelocytes % 1 % (0-0) Platelet Estimate Decreased (ADEQUATE) Giant Platelets Occ Polychromasia Slight Anisocytosis Slight Tear Drop Cells Occ D-Dimer (Coty) 7.27 ug/mlFEU (0.00-0.50) Sodium Level 137 mmol/L (136-145) Potassium Level 4.1 mmol/L (3.5-5.1) Chloride Level 101 mmol/L (98-107) Carbon Dioxide Level 30 mmol/L (21-32) Anion Gap 6 (6-14) Blood Urea Nitrogen 19 mg/dL (7-20) Creatinine 0.5 mg/dL (0.6-1.0) Estimated GFR (Cockcroft-Gault) 126.3 BUN/Creatinine Ratio 38 (6-20) Glucose Level 152 mg/dL (70-99) Calcium Level 8.2 mg/dL (8.5-10.1) Magnesium Level 2.1 mg/dL (1.8-2.4) Total Bilirubin 1.2 mg/dL (0.2-1.0) Aspartate Amino Transf (AST/SGOT) 64 U/L (15-37) Alanine Aminotransferase (ALT/SGPT) 122 U/L (14-59) Alkaline Phosphatase 247 U/L (46-116) Creatine Kinase 67 U/L (26-192) Creatine Kinase MB (Mass) 1.4 ng/mL (0.0-3.6) Creatine Kinase MB Relative Index % (0-4) Troponin I Quantitative < 0.017 ng/mL (0.000-0.055) < 0.017 ng/mL (0.000-0.055) < 0.017 ng/mL (0.000-0.055) EA-Vlz-V-Type Natriuretic Peptide 83 pg/mL (0-124) Total Protein 5.7 g/dL (6.4-8.2) Albumin 2.8 g/dL (3.4-5.0) Albumin/Globulin Ratio 1.0 (1.0-1.7) Lipase 229 U/L (73-393) Thyroid Stimulating Hormone (TSH) 0.558 uIU/mL (0.358-3.74) Lactic Acid Level 1.4 mmol/L (0.4-2.0) 2.5 mmol/L (0.4-2.0) Glucose (Fingerstick) 79 mg/dL (70-99) Test 12/02/18 12:20 Glucose (Fingerstick) 100 mg/dL (70-99) Laboratory Tests Test 12/01/18 21:13 12/02/18 03:30 12/02/18 07:56 12/02/18 10:55 White Blood Count 5.3 x10^3/uL (4.0-11.0) 3.8 x10^3/uL (4.0-11.0) Red Blood Count 2.41 x10^6/uL (3.50-5.40) 2.19 x10^6/uL (3.50-5.40) Hemoglobin 8.0 g/dL (12.0-15.5) 7.3 g/dL (12.0-15.5) Hematocrit 22.0 % (36.0-47.0) 20.1 % (36.0-47.0) Mean Corpuscular Volume 92 fL (79-100) 92 fL (79-100) Mean Corpuscular Hemoglobin 33 pg (25-35) 33 pg (25-35) Mean Corpuscular Hemoglobin Concent 36 g/dL (31-37) 36 g/dL (31-37) Red Cell Distribution Width 19.2 % (11.5-14.5) 19.7 % (11.5-14.5) Platelet Count 71 x10^3/uL (140-400) 60 x10^3/uL (140-400) Neutrophils (%) (Auto) 80 % (31-73) 76 % (31-73) Lymphocytes (%) (Auto) 14 % (24-48) 19 % (24-48) Monocytes (%) (Auto) 5 % (0-9) 5 % (0-9) Eosinophils (%) (Auto) 0 % (0-3) 0 % (0-3) Basophils (%) (Auto) 0 % (0-3) 0 % (0-3) Neutrophils # (Auto) 4.2 x10^3/uL (1.8-7.7) 2.9 x10^3/uL (1.8-7.7) Lymphocytes # (Auto) 0.8 x10^3/uL (1.0-4.8) 0.7 x10^3/uL (1.0-4.8) Monocytes # (Auto) 0.3 x10^3/uL (0.0-1.1) 0.2 x10^3/uL (0.0-1.1) Eosinophils # (Auto) 0.0 x10^3/uL (0.0-0.7) 0.0 x10^3/uL (0.0-0.7) Basophils # (Auto) 0.0 x10^3/uL (0.0-0.2) 0.0 x10^3/uL (0.0-0.2) Segmented Neutrophils % 71 % (35-66) Band Neutrophils % 10 % (0-9) Lymphocytes % 13 % (24-48) Atypical Lymphocytes % (Manual) 1 % (0-0) Monocytes % 3 % (0-10) Metamyelocytes % 1 % (0-0) Myelocytes % 1 % (0-0) Platelet Estimate Decreased (ADEQUATE) Giant Platelets Occ Polychromasia Slight Anisocytosis Slight Tear Drop Cells Occ D-Dimer (Coty) 7.27 ug/mlFEU (0.00-0.50) Sodium Level 137 mmol/L (136-145) Potassium Level 4.1 mmol/L (3.5-5.1) Chloride Level 101 mmol/L (98-107) Carbon Dioxide Level 30 mmol/L (21-32) Anion Gap 6 (6-14) Blood Urea Nitrogen 19 mg/dL (7-20) Creatinine 0.5 mg/dL (0.6-1.0) Estimated GFR (Cockcroft-Gault) 126.3 BUN/Creatinine Ratio 38 (6-20) Glucose Level 152 mg/dL (70-99) Calcium Level 8.2 mg/dL (8.5-10.1) Magnesium Level 2.1 mg/dL (1.8-2.4) Total Bilirubin 1.2 mg/dL (0.2-1.0) Aspartate Amino Transf (AST/SGOT) 64 U/L (15-37) Alanine Aminotransferase (ALT/SGPT) 122 U/L (14-59) Alkaline Phosphatase 247 U/L (46-116) Creatine Kinase 67 U/L (26-192) Creatine Kinase MB (Mass) 1.4 ng/mL (0.0-3.6) Creatine Kinase MB Relative Index % (0-4) Troponin I Quantitative < 0.017 ng/mL (0.000-0.055) < 0.017 ng/mL (0.000-0.055) < 0.017 ng/mL (0.000-0.055) QL-Wzz-F-Type Natriuretic Peptide 83 pg/mL (0-124) Total Protein 5.7 g/dL (6.4-8.2) Albumin 2.8 g/dL (3.4-5.0) Albumin/Globulin Ratio 1.0 (1.0-1.7) Lipase 229 U/L (73-393) Thyroid Stimulating Hormone (TSH) 0.558 uIU/mL (0.358-3.74) Lactic Acid Level 1.4 mmol/L (0.4-2.0) 2.5 mmol/L (0.4-2.0) Glucose (Fingerstick) 79 mg/dL (70-99) Test 12/02/18 12:20 Glucose (Fingerstick) 100 mg/dL (70-99) VTE Prophylaxis Ordered VTE Prophylaxis Devices: Yes VTE Pharmacological Prophylaxi: No Assessment/Plan Assessment/Plan sepsis pneumonia metastatic breast cancer, weakness and debility anemia of chronic disease moderate malnutrition JOSE JAIN MD Dec 02, 2018 13:55
[2018-12-02 15:15] VITALS: BP 105/72
[2018-12-02 19:00] VITALS: BP 108/71
[2018-12-02] MEDS ORDERED: cefTRIAXone IV Push 1 GM VIAL. IVP SCH (21:00)
[2018-12-02 23:00] VITALS: BP 110/80
[2018-12-02] MEDS ORDERED: MAG HYDROX/ALUMINUM HYD/SIMETH 30 ML ORAL.SUSP PO PRN (23:00)
[2018-12-03 03:00] VITALS: BP 104/69
[2018-12-03 07:00] VITALS: BP 114/77
[2018-12-03] MEDS: PANTOPRAZOLE 40 MG TABLET.DR. PO SCH (07:00)
[2018-12-03] MEDS: IPRATROPIUM BROMIDE 0.5 MG/2.5 ML NEBU. NEB SCH ×2 (07:12→11:50)
[2018-12-03] MEDS: INSULIN LISPRO 300 UNITS/3 ML VIAL. SQ SCH ×4 (08:00→12:31)
[2018-12-03] MEDS: DEXAMETHASONE 1 MG TABLET PO SCH ×2 (08:20→14:26)
[2018-12-03] MEDS: FUROSEMIDE 20 MG TABLET PO SCH (08:20)
[2018-12-03] MEDS: levETIRAcetam 250 MG TABLET PO SCH (08:20)
[2018-12-03] MEDS: POTASSIUM CHLORIDE 20 MEQ TABLET.ER. PO SCH (08:20)
--- NOTE | 2018-12-03 08:27 | PDOC ---
PULMONARY PROGRESS NOTES Subjective sob better, has occ cough, no pain, wants to go home Vitals Vital Signs Date Time Temp Pulse Resp B/P (MAP) Pulse Ox O2 Delivery O2 Flow Rate FiO2 12/03/18 07:12 66 Room Air 12/03/18 03:00 98.1 88 20 104/69 (81) 98.1 ROS: No Nausea General: Alert, No acute distress HEENT: Other (nc at perrl) Lungs: Crackles Cardiovascular: S1, S2 Abdomen: Soft, Non-tender Neuro Exam: Alert Extremities: Other (edema) Skin: Warm Labs Laboratory Tests Test 12/01/18 21:13 12/02/18 03:30 12/02/18 07:56 12/02/18 10:55 White Blood Count 5.3 x10^3/uL (4.0-11.0) 3.8 x10^3/uL (4.0-11.0) Red Blood Count 2.41 x10^6/uL (3.50-5.40) 2.19 x10^6/uL (3.50-5.40) Hemoglobin 8.0 g/dL (12.0-15.5) 7.3 g/dL (12.0-15.5) Hematocrit 22.0 % (36.0-47.0) 20.1 % (36.0-47.0) Mean Corpuscular Volume 92 fL (79-100) 92 fL (79-100) Mean Corpuscular Hemoglobin 33 pg (25-35) 33 pg (25-35) Mean Corpuscular Hemoglobin Concent 36 g/dL (31-37) 36 g/dL (31-37) Red Cell Distribution Width 19.2 % (11.5-14.5) 19.7 % (11.5-14.5) Platelet Count 71 x10^3/uL (140-400) 60 x10^3/uL (140-400) Neutrophils (%) (Auto) 80 % (31-73) 76 % (31-73) Lymphocytes (%) (Auto) 14 % (24-48) 19 % (24-48) Monocytes (%) (Auto) 5 % (0-9) 5 % (0-9) Eosinophils (%) (Auto) 0 % (0-3) 0 % (0-3) Basophils (%) (Auto) 0 % (0-3) 0 % (0-3) Neutrophils # (Auto) 4.2 x10^3/uL (1.8-7.7) 2.9 x10^3/uL (1.8-7.7) Lymphocytes # (Auto) 0.8 x10^3/uL (1.0-4.8) 0.7 x10^3/uL (1.0-4.8) Monocytes # (Auto) 0.3 x10^3/uL (0.0-1.1) 0.2 x10^3/uL (0.0-1.1) Eosinophils # (Auto) 0.0 x10^3/uL (0.0-0.7) 0.0 x10^3/uL (0.0-0.7) Basophils # (Auto) 0.0 x10^3/uL (0.0-0.2) 0.0 x10^3/uL (0.0-0.2) Segmented Neutrophils % 71 % (35-66) Band Neutrophils % 10 % (0-9) Lymphocytes % 13 % (24-48) Atypical Lymphocytes % (Manual) 1 % (0-0) Monocytes % 3 % (0-10) Metamyelocytes % 1 % (0-0) Myelocytes % 1 % (0-0) Platelet Estimate Decreased (ADEQUATE) Giant Platelets Occ Polychromasia Slight Anisocytosis Slight Tear Drop Cells Occ D-Dimer (Coty) 7.27 ug/mlFEU (0.00-0.50) Sodium Level 137 mmol/L (136-145) Potassium Level 4.1 mmol/L (3.5-5.1) Chloride Level 101 mmol/L (98-107) Carbon Dioxide Level 30 mmol/L (21-32) Anion Gap 6 (6-14) Blood Urea Nitrogen 19 mg/dL (7-20) Creatinine 0.5 mg/dL (0.6-1.0) Estimated GFR (Cockcroft-Gault) 126.3 BUN/Creatinine Ratio 38 (6-20) Glucose Level 152 mg/dL (70-99) Calcium Level 8.2 mg/dL (8.5-10.1) Magnesium Level 2.1 mg/dL (1.8-2.4) Total Bilirubin 1.2 mg/dL (0.2-1.0) Aspartate Amino Transf (AST/SGOT) 64 U/L (15-37) Alanine Aminotransferase (ALT/SGPT) 122 U/L (14-59) Alkaline Phosphatase 247 U/L (46-116) Creatine Kinase 67 U/L (26-192) Creatine Kinase MB (Mass) 1.4 ng/mL (0.0-3.6) Creatine Kinase MB Relative Index % (0-4) Troponin I Quantitative < 0.017 ng/mL (0.000-0.055) < 0.017 ng/mL (0.000-0.055) < 0.017 ng/mL (0.000-0.055) ZY-Ibi-G-Type Natriuretic Peptide 83 pg/mL (0-124) Total Protein 5.7 g/dL (6.4-8.2) Albumin 2.8 g/dL (3.4-5.0) Albumin/Globulin Ratio 1.0 (1.0-1.7) Lipase 229 U/L (73-393) Thyroid Stimulating Hormone (TSH) 0.558 uIU/mL (0.358-3.74) Lactic Acid Level 1.4 mmol/L (0.4-2.0) 2.5 mmol/L (0.4-2.0) Glucose (Fingerstick) 79 mg/dL (70-99) Test 12/02/18 12:20 12/02/18 16:32 12/02/18 20:26 12/03/18 07:53 Glucose (Fingerstick) 100 mg/dL (70-99) 190 mg/dL (70-99) 195 mg/dL (70-99) 68 mg/dL (70-99) Laboratory Tests Test 12/02/18 10:55 12/02/18 12:20 12/02/18 16:32 12/02/18 20:26 White Blood Count 3.8 x10^3/uL (4.0-11.0) Red Blood Count 2.19 x10^6/uL (3.50-5.40) Hemoglobin 7.3 g/dL (12.0-15.5) Hematocrit 20.1 % (36.0-47.0) Mean Corpuscular Volume 92 fL (79-100) Mean Corpuscular Hemoglobin 33 pg (25-35) Mean Corpuscular Hemoglobin Concent 36 g/dL (31-37) Red Cell Distribution Width 19.7 % (11.5-14.5) Platelet Count 60 x10^3/uL (140-400) Neutrophils (%) (Auto) 76 % (31-73) Lymphocytes (%) (Auto) 19 % (24-48) Monocytes (%) (Auto) 5 % (0-9) Eosinophils (%) (Auto) 0 % (0-3) Basophils (%) (Auto) 0 % (0-3) Neutrophils # (Auto) 2.9 x10^3/uL (1.8-7.7) Lymphocytes # (Auto) 0.7 x10^3/uL (1.0-4.8) Monocytes # (Auto) 0.2 x10^3/uL (0.0-1.1) Eosinophils # (Auto) 0.0 x10^3/uL (0.0-0.7) Basophils # (Auto) 0.0 x10^3/uL (0.0-0.2) Lactic Acid Level 2.5 mmol/L (0.4-2.0) Troponin I Quantitative < 0.017 ng/mL (0.000-0.055) Glucose (Fingerstick) 100 mg/dL (70-99) 190 mg/dL (70-99) 195 mg/dL (70-99) Test 12/03/18 07:53 Glucose (Fingerstick) 68 mg/dL (70-99) Medications Active Scripts Medications Dose Route/Sig Max Daily Dose Days Date Category Potassium Chloride 20 Meq Tablet.er 20 Meq PO BID 12/02/18 Reported Humalog (Insulin Lispro) 100 Unit/1 Ml Vial 10 Unit SQ TIDWMEALS 12/02/18 Reported Lantus Solostar (Insulin Glargine,Hum.rec.anlog) 100 Unit/1 Ml Insuln.pen 30 Unit SQ DAILY 12/02/18 Reported Capecitabine 500 Mg Tablet 1,500 Mg PO BID 12/02/18 Reported Capecitabine 150 Mg Tablet 150 Mg PO BID 12/02/18 Reported Ondansetron Odt (Ondansetron) 4 Mg Tab.rapdis 8 Mg PO PRN TID PRN 12/02/18 Reported Furosemide 20 Mg Tablet 20 Mg PO BID 12/02/18 Reported Ranitidine Hcl 300 Mg Tablet 300 Mg PO PRN DAILY PRN 12/02/18 Reported Lansoprazole 30 Mg Capsule.dr 30 Mg PO BID 12/02/18 Reported Dexamethasone 4 Mg Tablet 0.5 Mg PO TID 12/02/18 Reported Levetiracetam 500 Mg Tablet 1.5 Tab PO BID 12/02/18 Reported Lorazepam Intensol (Lorazepam) 2 Mg/1 Ml Oral.conc 2 Mg SL PRN Q6HRS PRN 15 10/10/18 Rx [place] 5-325 Tablet (Acetaminophen/Hydrocodone Bitart) 1 Each Tablet 1-2 Tab PO Q4-6HRS 10/13/16 Rx Impression . IMPRESSION: 1. Dyspnea, multifactorial in etiology including pneumonia, volume overload versus others. 2. Abnormal chest x-ray. 3. Pneumonia. 4. Metastatic breast cancer with mets to bone, brain and liver. 5. Anemia. 6. Thrombocytopenia. 7. Snoring, probable obstructive sleep apnea-hypopnea syndrome. Plan . PLAN AND RECOMMENDATIONS: 1. Titrate FiO2 to keep O2 saturation 92%. 2. bronchodilator. 3. cont abx, may change to po, total abx for 7 days 4. lower extremity venous Doppler neg 5. Echo and stress test that have been normal per patient. 6. keep I<O, lasix, monitor k, cr 7. pet next week ok to go home from pulm stand point discussed w pt, rn ALEKSANDRA ARTIS MD Dec 03, 2018 08:27
[2018-12-03] MEDS ORDERED: AZITHROMYCIN 250 MG TABLET. PO SCH (09:00)
[2018-12-03] MEDS: INSULIN GLARGINE 300 UNITS/3 ML INSULN.PEN. SQ SCH (09:24)
[2018-12-03 11:30] VITALS: BP 135/80
[2018-12-03 11:58] LABS: BASO % 0 % (0-3); EOS % 0 % (0-3); HEMATOCRIT 21.4 % (36.0-47.0); HEMOGLOBIN 7.6 g/dL (12.0-15.5); LYMPH % 17 % (24-48); MEAN CORPUSCULAR HEMOGLOBIN 33 pg (25-35); MEAN CORPUSCULAR HGB CONC 36 g/dL (31-37); MEAN CORPUSCULAR VOLUME 93 fL (79-100); MONO # 0.3 x10^3/uL (0.0-1.1); MONO % 5 % (0-9); NEUT # 4.8 x10^3/uL (1.8-7.7); NEUT % 78 % (31-73); PLATELET COUNT 75 x10^3/uL (140-400); RED CELL DISTRIBUTION WIDTH 20.3 % (11.5-14.5); WHITE BLOOD COUNT 6.2 x10^3/uL (4.0-11.0)
[2018-12-03 12:06] LABS: CALCIUM 7.7 mg/dL (8.5-10.1); CREATININE 0.5 mg/dL (0.6-1.0); GFR 126.3; POTASSIUM 3.9 mmol/L (3.5-5.1)
[2018-12-03] MEDS ORDERED: AZIT250T6 PO (12:36)
--- NOTE | 2018-12-03 12:39 | SNU/HH DC ---
DISCHARGE WITH HOME HEALTH DISCHARGE INFORMATION: Discharge Date: Dec 03, 2018 Final Diagnosis: Problems Medical Problems: (1) Chest pain Status: Acute (2) Right upper lobe pneumonia Status: Acute Condition on Discharge: Stable CODE STATUS: Code Status: Full HOME HEALTH: Face to Face: I certify this patient is under my care and that I, had a face to face encounter that meets the physician face to face encounter requirements with this patient on 12/03 Medical Complications: Pneumonia, Other (metastatic breast cancer) Residential For: Assess/Skilled Observatio, Medication Management RN For Eval/Treatment: Yes Physical Therapy For: Evalulation/Treatment Occupational Therapy For: Evaluation/Treatment Pt Meets Homebound Status: Unsteady balance w/ amb,, Fatigue w/ amb., Limited distance walking POST DISCHARGE ORDERS: Activity Instructions for Disc: Activity as tolerated DIET AFTER DISCHARGE: Cardiac CERTIFICATION STATEMENT: Certification Statement: Certification Statement: Based on the above finding, I certify that this patient is confined to the home and needs intermittent intermediate care, physical therapy and/or speech therapy, or continues to need occupational therapy.~ This patient is under my care, and I have initiated the establishment of the plan of care.~ This patient will be followed by myself or a community physician who will periodically review the plan of care. Home Meds Active Scripts Azithromycin (AZITHROMYCIN TABLET) 250 Mg Tablet, 250 MG PO DAILY for pneumonia, #6 TAB Prov:JOSE JAIN MD 12/03/18 Lorazepam (LORAZEPAM INTENSOL) 2 Mg/1 Ml Oral.conc, 2 MG SL PRN Q6HRS PRN for ANXIETY / AGITATION for 15 Days, #30 MISC 1 Refill Prov:MANE DONIS MD 10/10/18 Hydrocodone/Apap 5-325 (NORCO 5-325 TABLET) 1 Each Tablet, 1-2 TAB PO Q4-6HRS for wrist, elbow fracture, #20 TAB Prov:PUSHPA DORAN MD 10/13/16 Reported Medications Potassium Chloride (POTASSIUM CHLORIDE) 20 Meq Tablet.er, 20 MEQ PO BID for Supplemental for Lasix, TAB.SR 12/02/18 Insulin Lispro (HUMALOG) 100 Unit/1 Ml Vial, 10 UNIT SQ TIDWMEALS for steroid- induced hyperglycemia, VIAL 12/02/18 Insulin Glargine,Hum.rec.anlog (LANTUS SOLOSTAR) 100 Unit/1 Ml Insuln.pen, 30 UNIT SQ DAILY for steroid-induced hyperglycemia, #15 ML 3 Refills 12/02/18 Capecitabine (Capecitabine) 500 Mg Tablet, 1500 MG PO BID for cancer, TAB 12/02/18 Capecitabine (Capecitabine) 150 Mg Tablet, 150 MG PO BID for cancer, TAB 12/02/18 Ondansetron (ONDANSETRON ODT) 4 Mg Tab.rapdis, 8 MG PO PRN TID PRN for NA USEA/VOMITING, TAB 12/02/18 Furosemide (FUROSEMIDE) 20 Mg Tablet, 20 MG PO BID for edema, TAB 12/02/18 Ranitidine Hcl (RANITIDINE HCL) 300 Mg Tablet, 300 MG PO PRN DAILY PRN for INDIGESTION, TAB 12/02/18 Lansoprazole (LANSOPRAZOLE) 30 Mg Capsule.dr, 30 MG PO BID for GERD, CAP 12/02/18 Dexamethasone (DEXAMETHASONE) 4 Mg Tablet, 0.5 MG PO TID for inflammation, TAB 12/02/18 Levetiracetam (LEVETIRACETAM) 500 Mg Tablet, 1.5 TAB PO BID for seizures, #180 TAB 3 Refills 12/02/18 JOSE JAIN MD Dec 03, 2018 12:39
--- NOTE | 2018-12-03 13:04 | PDOC3 ---
Discharge Summary Visit Information Date of Admission: Dec 02, 2018 Date of Discharge: Dec 03, 2018 Final Diagnosis sepsis pneumonia metastatic breast cancer, weakness and debility anemia of chronic disease moderate malnutrition Problems Medical Problems: (1) Chest pain Status: Acute (2) Right upper lobe pneumonia Status: Acute Brief Hospital Course Allergies Allergies Coded Allergies Type Severity Reaction Last Updated Verified No Known Drug Allergies 01/16/14 No Vital Signs Vital Signs Date Time Temp Pulse Resp B/P (MAP) Pulse Ox O2 Delivery O2 Flow Rate FiO2 12/03/18 11:50 Room Air 12/03/18 11:30 97.9 113 20 135/80 (98) 96 97.9 Lab Results Laboratory Tests Test 12/01/18 21:13 12/02/18 03:30 12/02/18 07:56 12/02/18 10:55 White Blood Count 5.3 x10^3/uL (4.0-11.0) 3.8 x10^3/uL (4.0-11.0) Red Blood Count 2.41 x10^6/uL (3.50-5.40) 2.19 x10^6/uL (3.50-5.40) Hemoglobin 8.0 g/dL (12.0-15.5) 7.3 g/dL (12.0-15.5) Hematocrit 22.0 % (36.0-47.0) 20.1 % (36.0-47.0) Mean Corpuscular Volume 92 fL (79-100) 92 fL (79-100) Mean Corpuscular Hemoglobin 33 pg (25-35) 33 pg (25-35) Mean Corpuscular Hemoglobin Concent 36 g/dL (31-37) 36 g/dL (31-37) Red Cell Distribution Width 19.2 % (11.5-14.5) 19.7 % (11.5-14.5) Platelet Count 71 x10^3/uL (140-400) 60 x10^3/uL (140-400) Neutrophils (%) (Auto) 80 % (31-73) 76 % (31-73) Lymphocytes (%) (Auto) 14 % (24-48) 19 % (24-48) Monocytes (%) (Auto) 5 % (0-9) 5 % (0-9) Eosinophils (%) (Auto) 0 % (0-3) 0 % (0-3) Basophils (%) (Auto) 0 % (0-3) 0 % (0-3) Neutrophils # (Auto) 4.2 x10^3/uL (1.8-7.7) 2.9 x10^3/uL (1.8-7.7) Lymphocytes # (Auto) 0.8 x10^3/uL (1.0-4.8) 0.7 x10^3/uL (1.0-4.8) Monocytes # (Auto) 0.3 x10^3/uL (0.0-1.1) 0.2 x10^3/uL (0.0-1.1) Eosinophils # (Auto) 0.0 x10^3/uL (0.0-0.7) 0.0 x10^3/uL (0.0-0.7) Basophils # (Auto) 0.0 x10^3/uL (0.0-0.2) 0.0 x10^3/uL (0.0-0.2) Segmented Neutrophils % 71 % (35-66) Band Neutrophils % 10 % (0-9) Lymphocytes % 13 % (24-48) Atypical Lymphocytes % (Manual) 1 % (0-0) Monocytes % 3 % (0-10) Metamyelocytes % 1 % (0-0) Myelocytes % 1 % (0-0) Platelet Estimate Decreased (ADEQUATE) Giant Platelets Occ Polychromasia Slight Anisocytosis Slight Tear Drop Cells Occ D-Dimer (Coty) 7.27 ug/mlFEU (0.00-0.50) Sodium Level 137 mmol/L (136-145) Potassium Level 4.1 mmol/L (3.5-5.1) Chloride Level 101 mmol/L (98-107) Carbon Dioxide Level 30 mmol/L (21-32) Anion Gap 6 (6-14) Blood Urea Nitrogen 19 mg/dL (7-20) Creatinine 0.5 mg/dL (0.6-1.0) Estimated GFR (Cockcroft-Gault) 126.3 BUN/Creatinine Ratio 38 (6-20) Glucose Level 152 mg/dL (70-99) Calcium Level 8.2 mg/dL (8.5-10.1) Magnesium Level 2.1 mg/dL (1.8-2.4) Total Bilirubin 1.2 mg/dL (0.2-1.0) Aspartate Amino Transf (AST/SGOT) 64 U/L (15-37) Alanine Aminotransferase (ALT/SGPT) 122 U/L (14-59) Alkaline Phosphatase 247 U/L (46-116) Creatine Kinase 67 U/L (26-192) Creatine Kinase MB (Mass) 1.4 ng/mL (0.0-3.6) Creatine Kinase MB Relative Index % (0-4) Troponin I Quantitative < 0.017 ng/mL (0.000-0.055) < 0.017 ng/mL (0.000-0.055) < 0.017 ng/mL (0.000-0.055) ZF-Oxf-L-Type Natriuretic Peptide 83 pg/mL (0-124) Total Protein 5.7 g/dL (6.4-8.2) Albumin 2.8 g/dL (3.4-5.0) Albumin/Globulin Ratio 1.0 (1.0-1.7) Lipase 229 U/L (73-393) Thyroid Stimulating Hormone (TSH) 0.558 uIU/mL (0.358-3.74) Lactic Acid Level 1.4 mmol/L (0.4-2.0) 2.5 mmol/L (0.4-2.0) Glucose (Fingerstick) 79 mg/dL (70-99) Test 12/02/18 12:20 12/02/18 16:32 12/02/18 20:26 12/03/18 07:53 Glucose (Fingerstick) 100 mg/dL (70-99) 190 mg/dL (70-99) 195 mg/dL (70-99) 68 mg/dL (70-99) Test 12/03/18 08:46 12/03/18 11:50 12/03/18 11:51 Glucose (Fingerstick) 118 mg/dL (70-99) 150 mg/dL (70-99) White Blood Count 6.2 x10^3/uL (4.0-11.0) Red Blood Count 2.30 x10^6/uL (3.50-5.40) Hemoglobin 7.6 g/dL (12.0-15.5) Hematocrit 21.4 % (36.0-47.0) Mean Corpuscular Volume 93 fL (79-100) Mean Corpuscular Hemoglobin 33 pg (25-35) Mean Corpuscular Hemoglobin Concent 36 g/dL (31-37) Red Cell Distribution Width 20.3 % (11.5-14.5) Platelet Count 75 x10^3/uL (140-400) Neutrophils (%) (Auto) 78 % (31-73) Lymphocytes (%) (Auto) 17 % (24-48) Monocytes (%) (Auto) 5 % (0-9) Eosinophils (%) (Auto) 0 % (0-3) Basophils (%) (Auto) 0 % (0-3) Neutrophils # (Auto) 4.8 x10^3/uL (1.8-7.7) Lymphocytes # (Auto) 1.0 x10^3/uL (1.0-4.8) Monocytes # (Auto) 0.3 x10^3/uL (0.0-1.1) Eosinophils # (Auto) 0.0 x10^3/uL (0.0-0.7) Basophils # (Auto) 0.0 x10^3/uL (0.0-0.2) Sodium Level 135 mmol/L (136-145) Potassium Level 3.9 mmol/L (3.5-5.1) Chloride Level 99 mmol/L (98-107) Carbon Dioxide Level 29 mmol/L (21-32) Anion Gap 7 (6-14) Blood Urea Nitrogen 11 mg/dL (7-20) Creatinine 0.5 mg/dL (0.6-1.0) Estimated GFR (Cockcroft-Gault) 126.3 Glucose Level 154 mg/dL (70-99) Calcium Level 7.7 mg/dL (8.5-10.1) Laboratory Tests Test 12/02/18 16:32 12/02/18 20:26 12/03/18 07:53 12/03/18 08:46 Glucose (Fingerstick) 190 mg/dL (70-99) 195 mg/dL (70-99) 68 mg/dL (70-99) 118 mg/dL (70-99) Test 12/03/18 11:50 12/03/18 11:51 White Blood Count 6.2 x10^3/uL (4.0-11.0) Red Blood Count 2.30 x10^6/uL (3.50-5.40) Hemoglobin 7.6 g/dL (12.0-15.5) Hematocrit 21.4 % (36.0-47.0) Mean Corpuscular Volume 93 fL (79-100) Mean Corpuscular Hemoglobin 33 pg (25-35) Mean Corpuscular Hemoglobin Concent 36 g/dL (31-37) Red Cell Distribution Width 20.3 % (11.5-14.5) Platelet Count 75 x10^3/uL (140-400) Neutrophils (%) (Auto) 78 % (31-73) Lymphocytes (%) (Auto) 17 % (24-48) Monocytes (%) (Auto) 5 % (0-9) Eosinophils (%) (Auto) 0 % (0-3) Basophils (%) (Auto) 0 % (0-3) Neutrophils # (Auto) 4.8 x10^3/uL (1.8-7.7) Lymphocytes # (Auto) 1.0 x10^3/uL (1.0-4.8) Monocytes # (Auto) 0.3 x10^3/uL (0.0-1.1) Eosinophils # (Auto) 0.0 x10^3/uL (0.0-0.7) Basophils # (Auto) 0.0 x10^3/uL (0.0-0.2) Sodium Level 135 mmol/L (136-145) Potassium Level 3.9 mmol/L (3.5-5.1) Chloride Level 99 mmol/L (98-107) Carbon Dioxide Level 29 mmol/L (21-32) Anion Gap 7 (6-14) Blood Urea Nitrogen 11 mg/dL (7-20) Creatinine 0.5 mg/dL (0.6-1.0) Estimated GFR (Cockcroft-Gault) 126.3 Glucose Level 154 mg/dL (70-99) Calcium Level 7.7 mg/dL (8.5-10.1) Glucose (Fingerstick) 150 mg/dL (70-99) Brief Hospital Course Ms. Martinez is a 58 old admit for pneumonia worsening metastatic breast cancer, on decdron for brain mets, + sinusitis clinically, and RUL haziness, better after 1 day, rocephin and azithro. cont abx at DC, sinusitis and post nasal with cough, bronchitis and pneumonia PULM and ONC consult Discharge Information Condition at Discharge: Improved Follow Up: Weeks Disposition/Orders: D/C to Home Scheduled Azithromycin (Azithromycin Tablet) 250 Mg Tablet, 250 MG PO DAILY for pneumonia, #6 Prescribed by: JOSE JAIN on 12/03/18 1236 Capecitabine (Capecitabine) 150 Mg Tablet, 150 MG PO BID for cancer, (Reported) Entered as Reported by: AMI DUMONT on 12/02/18320 Last Taken: Unknown Dose on 12/01/18899 Last Action: New Order on 12/02/18320 by MAI DUMONT Capecitabine (Capecitabine) 500 Mg Tablet, 1,500 MG PO BID for cancer, (Reported) Entered as Reported by: AMI DUMONT on 12/02/18320 Last Taken: Unknown Dose on 12/01/18899 Last Action: New Order on 12/02/18320 by AMI DUMONT Dexamethasone (Dexamethasone) 4 Mg Tablet, 0.5 MG PO TID for inflammation, (Reported) Entered as Reported by: AMI DUMONT on 12/02/18320 Last Taken: Unknown Dose on 12/01/18899 Last Action: Continued on 12/02/18338 by AMI DUMONT Furosemide (Furosemide) 20 Mg Tablet, 20 MG PO BID for edema, (Reported) Entered as Reported by: AMI DUMONT on 12/02/18320 Last Taken: Unknown Dose on 12/01/18 1400 Last Action: Continued on 12/02/18338 by AMI DUMONT Hydrocodone/Apap 5-325 (Balaton 5-325 Tablet) 1 Each Tablet, 1-2 TAB PO Q4-6HRS for wrist, elbow fracture, #20 Prescribed by: PUSHPA DORAN MD on 10/13/162008 Insulin Glargine,Hum.rec.anlog (Lantus Solostar) 100 Unit/1 Ml Insuln.pen, 30 UNIT SQ DAILY for steroid-induced hyperglycemia, #15 Ref 3 (Reported) Entered as Reported by: AMI DUMONT on 12/02/18320 Last Taken: Unknown Dose on 12/01/18899 Last Action: Continued on 12/02/18338 by AMI DUMONT Insulin Lispro (Humalog) 100 Unit/1 Ml Vial, 10 UNIT SQ TIDWMEALS for steroid- induced hyperglycemia, (Reported) Entered as Reported by: AMI DUMONT on 12/02/18320 Last Taken: Unknown Dose on 12/01/18 170 Last Action: Continued on 12/02/18338 by AMI DUMONT Lansoprazole (Lansoprazole) 30 Mg Capsule.dr, 30 MG PO BID for GERD, (Reported) Entered as Reported by: AMI DUMONT on 12/02/18320 Last Taken: Unknown Dose on 12/01/18899 Last Action: Converted on 12/02/18338 by AMI DUMONT Levetiracetam (Levetiracetam) 500 Mg Tablet, 1.5 TAB PO BID for seizures, #180 Ref 3 (Reported) Entered as Reported by: AMI DUMONT on 12/02/18320 Last Taken: Unknown Dose on 12/01/18899 Last Action: Continued on 12/02/18338 by AMI DUMONT Potassium Chloride (Potassium Chloride) 20 Meq Tablet.er, 20 MEQ PO BID for Supplemental for Lasix, (Reported) Entered as Reported by: AMI DUMONT on 12/02/18320 Last Taken: Unknown Dose on 12/01/18899 Last Action: Converted on 12/02/18338 by AMI DUMONT Scheduled PRN Lorazepam (Lorazepam Intensol) 2 Mg/1 Ml Oral.conc, 2 MG SL PRN Q6HRS PRN for ANXIETY / AGITATION for 15 Days, #30 Ref 1 Prescribed by: MANE DONIS MD on 10/10/18917 Ondansetron (Ondansetron Odt) 4 Mg Tab.rapdis, 8 MG PO PRN TID PRN for NAUSEA/VOMITING, (Reported) Entered as Reported by: AMI DUMONT on 12/02/18320 Last Taken: Unknown Dose on 12/01/18899 Last Action: Continued on 12/02/18338 by AMI DUMONT Ranitidine Hcl (Ranitidine Hcl) 300 Mg Tablet, 300 MG PO PRN DAILY PRN for INDIGESTION, (Reported) Entered as Reported by: AMI DUMONT on 12/02/18320 Last Taken: Unknown Dose on 12/01/18 0900 Last Action: Converted on 12/02/18338 by AMI DUMONT Patient Instructions Patient Instructions > 30 min face to face f.u primary care and onc call onc in AM, resume chemo LE us neg CT angio IMPRESSION: 1. No pulmonary embolism identified within the main, lobar or proximal segmental pulmonary arteries. Evaluation distally is limited by contrast bolus timing. 2. Patchy areas of opacity in the right upper lobe favored to be infectious in etiology. 3. Cirrhotic morphology of the liver with moderate amount of ascites in the visualized upper abdomen. 4. Heterogenous sclerotic appearance of the osseous structures. Correlate for history of metastatic disease.Ct JOSE JAIN MD Dec 03, 2018 13:04
--- NOTE | 2018-12-03 15:12 | NUR ---
Discharge Note: Patient was discharged home with home health. Patient already had services with hospice and Palliative services. Faxed new orders to them. Patients IV was discontinued without any complications per SAMPLE PROCESSOR. Patients at the bedside during discharge education. Patient was given discharge summary/instructions, follow-ups, prescriptions and educational materials. Patient and did not have any further questions or concerns. Patient was taken down to the ER entrance via wheelchair with all personal belongings accompanied by this RN, where her was waiting for her to take her home.
== END 2018-12-03 15:00 | disposition home health service (06) | DRG 871 ==
LOC: ER 20:58 → 5 NORTH 12-02 01:08
PROVIDERS: ADMIT Internal Medicine; ATTEND Internal Medicine
DX: A41.9 Sepsis, unspecified organism (principal); J18.1 Lobar pneumonia, unspecified organism; J96.90 Respiratory failure, unspecified, unspecified whether with hypoxia or hypercapnia; C78.7 Secondary malignant neoplasm of liver and intrahepatic bile duct; C79.31 Secondary malignant neoplasm of brain; C79.51 Secondary malignant neoplasm of bone; E44.0 Moderate protein-calorie malnutrition; R18.8 Other ascites; C50.912 Malignant neoplasm of unspecified site of left female breast; D63.8 Anemia in other chronic diseases classified elsewhere; D69.6 Thrombocytopenia, unspecified; E78.5 Hyperlipidemia, unspecified; G47.33 Obstructive sleep apnea (adult) (pediatric); K21.9 Gastro-esophageal reflux disease without esophagitis; Z85.3 Personal history of malignant neoplasm of breast; Z85.841 Personal history of malignant neoplasm of brain; Z90.49 Acquired absence of other specified parts of digestive tract; Z90.710 Acquired absence of both cervix and uterus; Z68.28 Body mass index [BMI] 28.0-28.9, adult; Z79.899 Other long term (current) drug therapy
CPT/HCPCS: 36415; 71045; 71275; 80048; 80053; 82553; 82962; 83605; 83690; 83735; 83880; 84443; 84484; 85007; 85025; 85379; 87040; 93005; 93970; 94640; 94760; 96361; 96366; 96375; J0696; J1815; J1956; J2405; J3490; J7030; J7644; Q0144; Q9967; 99285-25; G0378